=== PATIENT | female | born 1960 | race Caucasian/White ===

== ENCOUNTER 2020-06-09 09:44 | Outpatient (CLI) | payer OTHER, SELFPAY ==
[2020-06-10 19:47] LABS: SARS-CoV-2 RNA PCR Negative
== END 2020-06-09 09:45 | disposition home or self-care (01) ==
LOC: CHSLAB 09:47
PROVIDERS: PCP Internal Medicine; Visit Provider Internal Medicine
DX: Z20.828 Contact with and (suspected) exposure to other viral communicable diseases (principal)
CPT/HCPCS: 87635; C9803; U0003

== ENCOUNTER 2021-07-30 14:36 | Outpatient (CLI) | payer OTHER, SELFPAY ==
[2021-07-30 16:19] LABS: Influenza Control Valid (Valid); SARS-CoV-2 Ag Negative (Negative)
== END 2021-07-30 14:37 | disposition home or self-care (01) ==
LOC: CHSLAB 14:38
PROVIDERS: PCP Internal Medicine; Visit Provider Internal Medicine
DX: J06.9 Acute upper respiratory infection, unspecified (principal); Z20.822 Contact with and (suspected) exposure to COVID-19
CPT/HCPCS: 87426; 87804; C9803

== ENCOUNTER → 2021-09-15 06:53 | Outpatient (CLI) | payer OTHER, SELFPAY ==
--- NOTE | ~2021-09-15 | DEXA_ITS ---
Bone Density Report Name: JJ ESTRELLA Age: 60 Sex: Female Ethnicity: White Date of : 1960 Indication: postmenopausal; screening for osteoporosis; height loss; asthma or emphysema; Referring Provider: ANNA MOTTA Study: Bone densitometry was performed. Exam Date: September 15, 2021 Accession number: [id number] Bone Density: Region BMD T-score Z-score Classification AP Spine (L1-L4) 1.032 -0.1 1.5 Normal Femoral Neck (Left) 0.613 -2.1 -0.7 Osteopenia Total Hip (Left) 0.690 -2.1 -1.0 Osteopenia Femoral Neck (Right) 0.619 -2.1 -0.7 Osteopenia Total Hip (Right) 0.699 -2.0 -0.9 Osteopenia Total Hip Mean 0.695 -2.1 -1.0 Osteopenia World Health Organization criteria for BMD impression classify patients as: Normal (T-score at or above -1.0), Osteopenia (T-score between -1.0 and -2.5), or Osteoporosis (T-score at or below -2.5). 10-year Fracture Risk(1): Major Osteoporotic Fracture 10% Hip Fracture 1.5% Reported Risk Factors: [place] (), Neck BMD=0.619, BMI=24.5 (1) FRAX(R) Version 3.08. Fracture probability calculated for an untreated patient. Fracture probability may be lower if the patient has received treatment. Clinical Information Provided by Patient: Has used the following medications: Vitamin D Has the following medical conditions: Asthma or Emphysema Patient maximum height was 65 Menopause Age: 40 Drinks caffeinated beverages Onset of menses at age 8 Number of children 0 Impression: The patient has low bone mass, based on the Left Total Hip T-score. The patient has an estimated ten-year risk of hip fracture of 1.5% and an estimated ten-year risk of major fracture of 10%, based on the WHO FRAX algorithm. Discussion: BONE DENSITY IS LOW AT ONE OR MORE SKELETAL SITES. This patient's lowest T-score is low at one or more skeletal sites. It meets the World Health Organization's (WHO) criteria for ?low bone mass? (T-score between -1.0 and -2.5). The patient's 10-year risk of fracture as calculated by FRAX is less than the threshold where pharmacological therapy is recommended by the National Osteoporosis Foundation (NOF). However, all treatment decisions require clinical judgment and consideration of individual patient factors, including patient preferences, comorbidities, previous drug use, risk factors not captured in the FRAX model (e.g., frailty, falls, vitamin D deficiency, increased bone turnover, interval significant decline in bone density) and possible under or overestimation of fracture risk by FRAX. The patient should follow a healthful lifestyle (good nutrition with adequate calcium and vitamin D, and appropriate weight-bearing exercise). Follow-Up: Consider repeating this study in 2 to 3 years to reassess this patient's status, or sooner if there is some new clin
== END ==
PROVIDERS: Visit Provider Obstetrics & Gynecology Gynecology
DX: Z78.0 Asymptomatic menopausal state (principal); M85.852 Other specified disorders of bone density and structure, left thigh; M85.851 Other specified disorders of bone density and structure, right thigh
CPT/HCPCS: 77080

== ENCOUNTER 2022-03-13 07:31 | Outpatient (CLI) | payer OTHER, SELFPAY ==
[2022-03-16 16:16] LABS: Vitamin D 25 Hydroxy 42 ng/mL (30-100)
== END 2022-03-13 07:32 | disposition home or self-care (01) ==
LOC: CHSLAB 07:34
PROVIDERS: PCP Internal Medicine; Visit Provider Obstetrics & Gynecology Gynecology
DX: E55.9 Vitamin D deficiency, unspecified (principal)
CPT/HCPCS: 36415; 82306

== ENCOUNTER 2022-07-14 07:35 | Outpatient (CLI) | payer OTHER, SELFPAY ==
[2022-07-14 07:49] LABS: Add Urine Microscopic? YES; Appearance Urine Clear (Clear); Basophils Absolute Auto 0.06 K/mm3 (0.00-0.10); Basophils Percent Auto 0.8 % (0.0-1.0); Bilirubin Urine Negative (Negative); Blood Urine Trace-Intact (Negative); Color Urine Light Yellow (Yellow); Eosinophils Absolute Auto 0.11 K/mm3 (0.02-0.50); Eosinophils Percent Auto 1.5 % (1.0-6.0); Glucose Urine UA Negative (Negative); Hematocrit 40.4 % (35.0-49.0); Hemoglobin 13.4 g/dL (12.0-15.0); Immature Granulocyte Absolute 0.02 K/mm3 (0.00-0.00); Immature Granulocyte Percent A 0.3 % (0.0-0.0); Ketones Urine Negative (Negative); Leukocyte Esterase Ur Trace (Negative); Lymphocytes Absolute Auto 1.51 K/mm3 (1.10-4.50); Mean Corpuscular HGB Conc 33.2 g/dL (32.0-36.0); Mean Corpuscular Hemoglobin 30.8 pg (27.0-31.0); Mean Corpuscular Volume 92.9 fL (78.0-102.0); Mean Platelet Volume 9.9 fl (9.2-11.8); Monocytes Absolute Auto 0.52 K/mm3 (0.10-0.90); Monocytes Percent Auto 7.2 % (2.0-11.0); Neutrophils Percent Auto 69.2 % (50.0-70.0); Nitrate Urine Negative (Negative); Platelet Count Result 261 K/mm3 (150-420); Protein Urine Negative (Negative); Red Blood Count 4.35 M/mm3 (4.20-5.40); Red Cell Distribution Width 12.7 % (11.6-14.4); Specific Grav Ur <= 1.005 (1.010-1.020); Urobilinogen Urine 0.2 mg/dL (0.2-1.0); White Blood Count 7.2 K/mm3 (4.8-10.8)
[2022-07-14 07:55] LABS: Bacteria Urine None seen /hpf; RBC Urine 0-2 /hpf (0-2); Squamous Epithelial Cell Urine Rare /hpf (Few); WBC Urine 0-3 /hpf (0-3)
[2022-07-14 08:11] LABS: Anion Gap 7 mmol/L (8-16); Blood Urea Nitrogen 16 mg/dL (7-18); Carbon Dioxide 30 mmol/L (21-32); Chloride 105 mmol/L (98-108); Potassium 3.5 mmol/L (3.5-5.1); Sodium 142 mmol/L (136-145)
[2022-07-14 08:12] LABS: Alanine Aminotransferase 20 U/L (14-59); Albumin Level 3.9 g/dL (3.4-5.0); Alkaline Phosphatase 81 U/L (46-116); Amylase 33 U/L (25-115); Aspartate Amino Transferase 17 U/L (15-37); Bilirubin,Total 0.5 mg/dL (0.00-1.00); Estimated Glomerular Filt Rate > 60; Glucose 102 mg/dL (70-99); Lipase 31 U/L (16-77); Osmolality Calculated 295 mOsm/kg (285-295); Total Protein 6.9 g/dL (6.4-8.2)
[2022-07-14 08:18] LABS: CRP < 0.5 mg/dL (0.0-0.9)
== END 2022-07-14 07:36 | disposition home or self-care (01) ==
LOC: CHSLAB 07:38
PROVIDERS: PCP Internal Medicine; Visit Provider Internal Medicine
DX: R10.31 Right lower quadrant pain (principal)
CPT/HCPCS: 36415; 80053; 81001; 82150; 83690; 85025; 86140; 87086

== ENCOUNTER 2023-01-17 09:56 | Outpatient (CLI) | payer BC, SELFPAY ==
[2023-01-17 11:07] LABS: Albumin Level 3.5 g/dL (3.4-5.0); Estimated Glomerular Filt Rate > 60
== END 2023-01-17 09:57 | disposition home or self-care (01) ==
LOC: CHSLAB 10:10
PROVIDERS: PCP Internal Medicine; Visit Provider Obstetrics & Gynecology Gynecology
DX: M85.88 Other specified disorders of bone density and structure, other site (principal)
CPT/HCPCS: 36415; 82040; 82310; 82565

== ENCOUNTER 2023-09-26 07:57 | Outpatient (CLI) | payer MEDICARE, OTHER, SELFPAY ==
--- NOTE | ~2023-09-26 | XR_ITS ---
EXAMINATION: XR shoulder LT min 2V DATE: 09/26/2023 08:40 INDICATION: Left shoulder pain. TECHNIQUE: 4 views of left shoulder were obtained. COMPARISON: None. FINDINGS: Bone alignment is normal. No fracture. There is mild osteoarthritis of glenohumeral joint a nd acromioclavicular joint. IMPRESSION: 1. Mild polyarticular osteoarthritis. Reviewed, dictated and finalized at location E. ASE AND INSECT CONTROL BOSS
--- NOTE | ~2023-09-26 | XR_ITS ---
EXAMINATION: XR shoulder RT min 2V DATE: 09/26/2023 08:40 INDICATION: Right shoulder pain. TECHNIQUE: 4 views of right shoulder were obtained. COMPARISON: None. FINDINGS: Bone alignment is normal. No fracture. There is mild osteoarthritis of acromioclavicular leslie int and glenohumeral joint. IMPRESSION: 1. Mild polyarticular osteoarthritis. Reviewed, dictated and finalized at location E. RAW SUGAR CUTTER
== END 2023-09-26 07:58 | disposition home or self-care (01) ==
LOC: CHSIMG 08:03
PROVIDERS: PCP Internal Medicine; Visit Provider Internal Medicine
DX: M25.511 Pain in right shoulder (principal); M25.512 Pain in left shoulder; M19.012 Primary osteoarthritis, left shoulder; M19.011 Primary osteoarthritis, right shoulder
CPT/HCPCS: 73030

== ENCOUNTER 2023-09-30 16:02 | Outpatient (NON) | payer MEDICARE, SELFPAY ==
[2023-09-30 16:13] LABS: Basophils Absolute Auto 0.08 K/mm3 (0.00-0.10); Eosinophils Absolute Auto 0.18 K/mm3 (0.02-0.50); Eosinophils Percent Auto 2.2 % (1.0-6.0); Hematocrit 41.5 % (35.0-42.0); Hemoglobin 13.6 g/dL (11.7-13.8); Immature Granulocyte Absolute 0.02 K/mm3 (0.00-0.00); Immature Granulocyte Percent A 0.2 % (0.0-0.0); Lymphocytes Absolute Auto 2.31 K/mm3 (1.10-4.50); Lymphocytes Percent Auto 27.7 % (18.0-42.0); Mean Corpuscular HGB Conc 32.8 g/dL (32.0-36.0); Mean Corpuscular Hemoglobin 29.8 pg (27.0-31.0); Mean Platelet Volume 10.2 fl (9.2-11.8); Monocytes Absolute Auto 0.59 K/mm3 (0.10-0.90); Monocytes Percent Auto 7.1 % (2.0-11.0); Neutrophils Absolute Auto 5.2 K/mm3 (1.7-7.2); Neutrophils Percent Auto 61.8 % (50.0-70.0); Platelet Count Result 259 K/mm3 (150-420); Red Blood Count 4.56 M/mm3 (4.20-5.40); Red Cell Distribution Width 13.2 % (11.6-14.4); White Blood Count 8.4 K/mm3 (4.8-10.8)
[2023-09-30 16:20] LABS: D Dimer 0.19 mg/L (0.19-0.50)
[2023-09-30 16:37] LABS: Alanine Aminotransferase 13 U/L (14-59); Alkaline Phosphatase 68 U/L (46-116); Anion Gap 9 mmol/L (8-16); Aspartate Amino Transferase 19 U/L (15-37); Bilirubin,Total 0.3 mg/dL (0.00-1.00); Blood Urea Nitrogen 19 mg/dL (7-18); Carbon Dioxide 30 mmol/L (21-32); Chloride 105 mmol/L (98-108); Creatine Kinase 114 U/L (26-192); Estimated Glomerular Filt Rate > 60; Glucose 103 mg/dL (70-99); Osmolality Calculated 300 mOsm/kg (285-295); Sodium 144 mmol/L (136-145); Thyroid Stimulating Hormone 1.35 uIU/mL (0.36-3.74); Total Protein 7.3 g/dL (6.4-8.2); Troponin I 5.8 ng/L (0.00-60.4)
== END 2023-09-30 16:03 | disposition home or self-care (01) ==
LOC: CHSLAB 16:04
PROVIDERS: Visit Provider Internal Medicine
DX: R07.9 Chest pain, unspecified (principal); R53.83 Other fatigue
CPT/HCPCS: 36415; 80053; 82550; 82553; 84443; 84484; 85025; 85380

== ENCOUNTER 2023-10-06 07:23 | Outpatient (CLI) | payer MEDICARE, SELFPAY ==
--- NOTE | ~2023-10-06 | US_ITS ---
Limited Abdominal Sonogram: Real-time sonographic imaging of the right upper quadrant was performed. Clinical History: Dyspepsia Findings: The liver appears mildly echogenic, with no evidence of mass lesion or bile duct dilatatio n. Main portal vein demonstrates normal direction of flow. The gallbladder is well distended, and carina ears normal with no evidence of gallstone or wall thickening. The common bile duct measures 3 mm. Th e visualized pancreas, aorta, and IVC are unremarkable. Impression: Probable diffuse fatty infiltration of liver. Reviewed, dictated and finalized at location M. Impression: Probable diffuse fatty infiltration of liver.
== END 2023-10-06 07:24 | disposition home or self-care (01) ==
LOC: CHSIMG 07:24
PROVIDERS: PCP Internal Medicine; Visit Provider Internal Medicine
DX: R10.13 Epigastric pain (principal); J45.909 Unspecified asthma, uncomplicated
CPT/HCPCS: 76705

== ENCOUNTER 2023-10-06 13:45 | Outpatient (RCR) | payer MEDICARE, OTHER, SELFPAY ==
--- NOTE | 2023-10-06 15:01 | OPREHPOC ---
Outpatient Therapy Plan of Care This is a Multidisciplinary Plan of Care that may contain components documented by all disciplines (PT, OT, and ST.) PT Problem 1 PT Problem #1 Knowledge Deficit PT Goal 1 Goal The patient will be independent in a home exercise program. Target Visit 12 PT Problem 2 PT Problem #2 Pain PT Goal 1 Goal The patient will report no greater than 3/10 left shoulder pain with all activity. Target Visit 12 PT Problem 3 PT Problem #3 Impaired Range of Motion PT Goal 1 Goal The patient will demonstrate 160 degrees of left shoulder flexion AROM to reach into overhead cabinets. The patient will demonstrate functional IR AROM of the left shoulder to T8 to improve dressing and bathing ability. The patient will demonstrate 70 degrees of left shoulder ER AROM to reach a seatbelt. 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 Target Visit 12 PT Problem 5 PT Problem #5 Impaired Functional Mobil PT Goal 1 Goal The patient will have less than 10% self perceived disability per the Quick DASH questionnaire. Target Visit 12
--- NOTE | 2023-10-06 15:01 | PTOPEVAL1 ---
Assessment and note entered by Radha Pineda, PT Evaluation Information Assessment Status Evaluation Diagnosis L shoulder adhesive capsulitis Subjective Information Sheyla Schilling reports she started having left shoulder pain about 6 months ago and the pain has gradually worsened. She has difficulty reaching overhead and behind her back so she went to the doctor. She had a x-ray and was diagnosed with arthritis and a frozen shoulder. She was referred to physical therapy. She notes a lot of popping when she reaches and she can not lay on her left side. Reported Pain Level Pain Score 0: Self Report Assessment PT Clinical Summary Sheyla Schilling presents with left shoulder pain with a gradual onset. She has been diagnosed with adhesive capsulitis and x-rays showed osteoarthritis. 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 She objectively demonstrates tenderness on the left teres minor muscle, decreased left shoulder AROM, decreased left shoulder PROM, decreased left shoulder strength, and decreased functional abilities. She will benefit from skilled PT to address these limitations. Plan of Care Interventions Electrical Stimulation,Hot Pack/Cold Pack,Manual Therapy,Neuro Re-education,Patient/Caregiver Educati,Therapeutic Activities,Therapeutic Exercise PT Services Indicated Yes Treatment Frequency and 3 times a week for 12 visits Duration These treatments will address the objective and functional deficits as defined above. The patient will be advanced safely and appropriately in order for the patient to progress towards his/her prior level of function. Additional exercises will be introduced and as well as a comprehensive home exercise program upon discharge, if needed, ?to ensure carryover of functional gains achieved in the clinic. This treatment plan has been reviewed and agreement upon by the patient.
--- NOTE | 2023-10-17 07:16 | PCPTNOTE ---
patient has a schedule conflict
--- NOTE | 2023-11-02 08:07 | OPREHPOC ---
Outpatient Therapy Plan of Care This is a Multidisciplinary Plan of Care that may contain components documented by all disciplines (PT, OT, and ST.) PT Problem 1 PT Problem #1 Knowledge Deficit PT Goal 1 Goal The patient will be independent in a home exercise program. Target Visit 12 Progress Met PT Problem 2 PT Problem #2 Pain PT Goal 1 Goal The patient will report no greater than 3/10 left shoulder pain with all activity. Target Visit 12 Progress Partially Met PT Problem 3 PT Problem #3 Impaired Range of Motion PT Goal 1 Goal The patient will demonstrate 160 degrees of left shoulder flexion AROM to reach into overhead cabinets. The patient will demonstrate functional IR AROM of the left shoulder to T8 to improve dressing and bathing ability. met The patient will demonstrate 70 degrees of left shoulder ER AROM to reach a seatbelt. 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 Target Visit 12 Progress Partially Met PT Problem 5 PT Problem #5 Impaired Functional Mobil PT Goal 1 Goal The patient will have less than 10% self perceived disability per the Quick DASH questionnaire. Target Visit 12 Progress Not Met
--- NOTE | 2023-11-02 08:07 | PTOPDC ---
Assessment and note entered by JT File, PT Evaluation Information Assessment Status Discharge Diagnosis L shoulder adhesive capsulitis Subjective Information patient reports she feels pretty good today. she reports she only has pain in the L shoulder if she moves the arm the wrong way. she reports she is now able to reach behind her back, but reports she is unable to supinate her forearm with reaching behind her back causing difficulty to wash and get dressed. she reports she is able to sleep through the night now. she reports every once in a while she does have a twinge of pain, but reports it is very brief. she reports she would like to try exercises on her own. Reported Pain Level Pain Score 0: Self Report Assessment PT Clinical Summary mrs. sanchez presents to skilled PT services for her 10th skilled therapy visit. she displays improved L shoulder passive and active rom, improved strength, and improve functional lifting/ reaching. she displays improved functional score on the quick dash. she will be DC'd from skilled PT services today per her wishes, and will continue independent HEP at home. Plan of Care PT Services Indicated Yes
== END 2023-11-02 08:18 | disposition home or self-care (01) ==
LOC: CHSPT 13:45
PROVIDERS: Visit Provider Internal Medicine
DX: M25.512 Pain in left shoulder (principal)
CPT/HCPCS: 76705; 97014; 97110; 97140; 97161; G0283

== ENCOUNTER 2023-10-17 08:40 | Outpatient (CLI) | payer MEDICARE, OTHER, SELFPAY ==
--- NOTE | 2023-10-17 08:47 | EST_ITS ---
Patient Info Name: Sheyla Schilling Age: 63 years : 1960 Gender: Female Ht: 65 in Wt: 131 lbs BSA: 1.65 m2 HR: 68 bpm BP: 130 / 73 mmHg Heart Rhythm: Sinus Rhythm Technical Quality: Good Exam Date: 10/17/2023 10:16 AM Exam Location: [facility] Patient Status: Outpatient Admit Date: 10/17/2023 Staff Ordering Physician: Rommel Modi MD Attending Provider: Rommel Modi MD Exam Type: CA stress test treadmill w NM Study Info A treadmill exercise stress test was performed. Summary 1. 1. Negative Marcello exercise stress test for ischemic ST changes by ECG criteria. 2. 2. Good functional capacity, achieving 8.9 METs of workload. 3. 3. Appropriate HR response to exercise. 4. 4. Appropriate HR recovery at 1 minute post exercise. 5. 5. Nuclear scan to follow and will be reported separately. Please correlate with it. Protocol: Marcello Stress ECG Details Stage: REST Duration (min): 1 min : 40 sec Speed (mph): 0.0 Grade (%): 0 HR (bpm): 69 SBP (mmHg): 130 DBP (mmHg): 73 METS: --- Stage: REST Duration (min): 5 min : 7 sec Speed (mph): 0.0 Grade (%): 0 HR (bpm): 84 SBP (mmHg): 130 DBP (mmHg): 73 METS: --- Stage: STAGE 1 Duration (min): 1 min : 0 sec Speed (mph): 1.7 Grade (%): 10 HR (bpm): 104 SBP (mmHg): 130 DBP (mmHg): 73 METS: --- Stage: STAGE 1 Duration (min): 2 min : 0 sec Speed (mph): 1.7 Grade (%): 10 HR (bpm): 115 SBP (mmHg): 130 DBP (mmHg): 73 METS: --- Stage: STAGE 1 Duration (min): 3 min : 0 sec Speed (mph): 1.7 Grade (%): 10 HR (bpm): 114 SBP (mmHg): 131 DBP (mmHg): 62 METS: --- Stage: STAGE 2 Duration (min): 1 min : 0 sec Speed (mph): 2.5 Grade (%): 12 HR (bpm): 131 SBP (mmHg): 131 DBP (mmHg): 62 METS: --- Stage: STAGE 2 Duration (min): 2 min : 0 sec Speed (mph): 2.5 Grade (%): 12 HR (bpm): 144 SBP (mmHg): 131 DBP (mmHg): 62 METS: --- Stage: STAGE 2 Duration (min): 3 min : 0 sec Speed (mph): 2.5 Grade (%): 12 HR (bpm): 150 SBP (mmHg): 139 DBP (mmHg): 67 METS: --- Stage: STAGE 3 Duration (min): 1 min : 0 sec Speed (mph): 3.4 Grade (%): 14 HR (bpm): 157 SBP (mmHg): 139 DBP (mmHg): 67 METS: --- Stage: STAGE 3 Duration (min): 1 min : 0 sec Speed (mph): 3.4 Grade (%): 14 HR (bpm): 157 SBP (mmHg): 139 DBP (mmHg): 67 METS: --- Stage: RECOVERY Duration (min): 0 min : 59 sec Speed (mph): 0.0 Grade (%): 0 HR (bpm): 139 SBP (mmHg): 139 DBP (mmHg): 67 METS: --- Stage: RECOVERY Duration (min): 1 min : 59 sec Speed (mph): 0.0 Grade (%): 0 HR (bpm): 118 SBP (mmHg): 159 DBP (mmHg): 71 METS: --- Stage: RECOVERY Duration (min): 2 min : 59 sec Speed (mph): 0.0 Grade (%): 0 HR (bpm): 87 SBP (mmHg): 159 DBP (mmHg): 71 METS: --- Stage: RECOVERY Duration (min): 3 min :
--- NOTE | 2023-10-17 14:43 | WPDCARIOSTRE ---
Nuclear Stress Test INDICATIONS Indications: Chest pain PROCEDURE Procedure Performed: Myocardial Perf Spect-Multi Procedure: Patient exercised on a Marcello protocol and at peak exercise was injected with 30.3 mCi of cardiolyte. Multiple tomographic images were obtained. These are of good quality. There is evidence of small size, mild mid anterior perfusion defect with stress imaging. A separrate resting images were obtained after patient was injected with 10.0 mCi of cardiolyte. Multiple tomographic images were obtained. These are of good quality. There is no perfusion defect with rest imaging. CONCLUSION Conclusion: 1. Abnormal myocardial perfusion imaging demonstrating a small size anterior perfusion defect with stress imaging consistent with reversible ischemia. 2. Left ventriculogram demonstrates normal measured ejection fraction of 67% with no wall motion abnormalities. 3. TID score 0.94 is normal.
== END 2023-10-17 08:41 | disposition home or self-care (01) ==
LOC: CHSIMG 08:42
PROVIDERS: PCP Internal Medicine; Visit Provider Internal Medicine
DX: R07.89 Other chest pain (principal); R94.31 Abnormal electrocardiogram [ECG] [EKG]; R94.39 Abnormal result of other cardiovascular function study
CPT/HCPCS: 78452; 93017; A9502

== ENCOUNTER 2023-10-18 09:55 | Outpatient (CLI) | payer MEDICARE, OTHER, SELFPAY | END 2023-10-18 09:56 | disposition home or self-care (01) | LOC: CHSCARD 09:57 | PROVIDERS: PCP Internal Medicine; Visit Provider Internal Medicine | DX: J45.909 Unspecified asthma, uncomplicated (principal) | CPT/HCPCS: 94060; 94726; 94729 ==

== ENCOUNTER 2023-11-27 08:37 | Emergency (ER) | payer MEDICARE, OTHER, SELFPAY ==
--- NOTE | ~2023-11-27 | XR_ITS ---
EXAMINATION: XR ribs RT 2V w CXR 2V DATE: 11/27/2023 09:19 INDICATION: Right chest injury. Pain on inspiration. TECHNIQUE: Frontal and lateral views of the chest on 3 radiographs and 2 views on 3 radiographs of th e right ribs were obtained. COMPARISON: None. FINDINGS: CHEST TWO VIEWS: There is no pneumonia, pleural effusion, or pneumothorax. The heart size is normal. RIGHT RIBS: There is no rib fracture. IMPRESSION: 1. No rib fracture. Reviewed, dictated and finalized at location A. IMPRESSION: 1. No rib fracture.
[2023-11-27 08:37] VITALS: BP 138/81; PULSE 68; RESP 18; TEMP 36.4; O2SAT 100
[2023-11-27 08:45] VITALS: O2SAT 99
--- NOTE | 2023-11-27 08:45 | ED.FALL ---
HPI - Fall General Chief Complaint: Fall Stated Complaint: right side rib cage pain Time Seen by Provider: 11/27/23 08:44 Source: patient Mode of arrival: ambulatory Limitations: no limitations History of Present Illness HPI Narrative: Patient is a 63-year-old female with a right mid abdomen to the side fall prior to arrival. She was getting out of the bathtub and slipped and fell on her right side. No head or neck injuries. MD complaint: fall Onset (ago): hour(s) (1) Fall from: standing Fall witnessed: no Place fall occurred: home Loss of consciousness: none Prolonged down time: no Symptoms prior to fall: none Context: tripped/slipped Location of injury: chest ( Right side) Severity: moderate Severity scale (1-10): 6 Quality: sharp Associated symptoms (after fall): denies Related Data Home Medications Medication Instructions Recorded Confirmed calcium polycarbophil 625 mg 1,250 mg PO DAILY 01/28/23 01/28/23 tablet (FiberCon) cholecalciferol (vitamin D3) 50 100 mcg PO DAILY 01/28/23 01/28/23 mcg (2,000 unit) tablet (Vitamin D3) magnesium 250 mg tablet 500 mg PO DAILY 01/28/23 01/28/23 montelukast 10 mg tablet 10 mg PO HS 01/28/23 01/28/23 (Singulair) Allergies Allergy/AdvReac Type Severity Reaction Status Date / Time cephalexin [From Keflex] AdvReac Unknown Verified 01/28/23 11:34 Review of Systems Review of Systems: All systems reviewed & are unremarkable except as noted in HPI and below Constitutional: Constitutional: Reports no additional constitutional complaints Eyes: Eyes: Reports no additional eye complaints ENT: Reports system reviewed and no additional complaints, except as documented Cardiovascular: Cardiovascular: Reports no additional cardiovascular complaints Respiratory: Respiratory: Reports no additional respiratory complaints Gastrointestinal: Gastrointestinal: Reports no additional gastrointestinal complaints Genitourinary: Genitourinary: Reports no additional female genitourinary complaints Musculoskeletal: Musculoskeletal: Reports no additional musculoskeletal complaints Integumentary/Breasts: Skin/Breast: Reports system reviewed and no additional complaints, except as docu Neurologic: Reports system reviewed and no additional complaints, except as documented Psychiatric: Psychiatric: Reports no additional psychiatric complaints Endocrine: Endocrine: Reports no additional endocrine complaints Hematologic/Lymphatic: Hematologic/Lymphatic: Reports no additional hematologic/lymphatic complaints Allergic/Immunologic: Allergic/Immunologic: Reports no additional allergic/immunologic complaints Exam Const: General: healthy appearing Nutritional Appearance: well nourished Orientation/consciousness: patient oriented x3 HENMT: Head: normal to inspection Ears: external ears normal Face/Nose/Sinus: Normal external nose present Eyes: Conjunctivae: conjunctivae normal Pupils: Equal, round and reactive pupils present EOM: EOMs intact bilaterally Neck: Neck: normal visual inspection Chest: Chest palpation & inspection: normal inspection of the chest Other: right chest mid axillary line lower ribs are tender to palpation without deformity or crepitations Resp: Effort & Inspection: normal respiratory effort and not labored Auscultation: clear to auscultation bilaterally Cardio: Rate: regular rate Rhythm: regular rhythm Heart sounds: no murmurs GI: Inspection: non-distended GI Palp: Yes Soft to palpation and No Tenderness to palpation present (GI) Auscultation: normal bowel sounds : General: Yes bladder normal to palpation Back/Spine/Pelvis: Back: no CVA tenderness Skin: General skin exam: normal color Rashes: no rashes Wounds: no wounds Neuro: General: patient oriented x3 Cranial nerves: Yes Nystagmus not present Speech: normal speech Extrem: General: normal to inspection Psych: Mental Status: mental status grossly normal Affect: gus
[2023-11-27 09:45] VITALS: BP 111/80; PULSE 68; RESP 16; O2SAT 98
== END 2023-11-27 10:00 | disposition home or self-care (01) ==
PROVIDERS: Emergency Provider Emergency Medicine; PCP Internal Medicine
DX: S20.211A Contusion of right front wall of thorax, initial encounter (principal); W18.2XXA Fall in (into) shower or empty bathtub, initial encounter
CPT/HCPCS: 71046; 71100; 99283

== ENCOUNTER 2023-12-12 14:11 | Outpatient (CLI) | payer MEDICARE, OTHER, SELFPAY ==
--- NOTE | ~2023-12-12 | DEXA_ITS ---
? Bone Density Report? Name:? ESTRELLA, JJ L Patient ID:??? [id number] Age:? 63 Sex:? Female Ethnicity:? White Date of : 1960 Indication: postmenopausal; screening for osteoporosis; height loss; asthma or emphysema; Referring Provider: Leona Wong Study: Bone densitometry was performed. Exam Date: December 12, 2023 Accession number: [id number] Bone Density: Region? BMD??? T-score? Z-score?? Classification AP Spine(L1, L2, L3)? 0.923?? -0.9?0.9? Normal Femoral Neck (Left)? 0.636?? -1.9? -0.4? Osteopenia Total Hip (Left)? 0.718?? -1.8?-0.6? Osteopenia Femoral Neck (Right)? 0.629?? -2.0? -0.5? Osteopenia Total Hip (Right)? 0.708?? -1.9? -0.7? Osteopenia Femoral Neck Mean? 0.632?? -2.0? -0.4? Osteopenia Total Hip Mean? 0.713?? -1.9?-0.6? Osteopenia World Health Organization criteria for BMD impression classify patients as: Normal (T-score at or above -1.0), Osteopenia (T-score between -1.0 and -2.5), or Osteoporosis (T-score at or below -2.5). 10-year Fracture Risk: FRAX not reported because: ? Treated for osteoporosis Clinical Information Provided by Patient: Is being treated for osteoporosis Has used the following medications: Evista (i.e. raloxifene), Vitamin D Has the following medical conditions: Asthma or Emphysema Patient maximum height was 65 Menopause Age: 38 No regular weight bearing exercise Drinks caffeinated beverages Onset of menses at age 8 Number of children 0 Impression: The patient has low bone mass, based on the Right Femoral Neck T- score. Discussion: It is important to ask patients whether they are taking their medications and to encourage continued and appropriate compliance with their osteoporosis therapies to reduce fracture risk. It is also important to review their risk factors and encourage appropriate calcium and vitamin D intakes, exercise, fall prevention and other lifestyle measures. Follow-Up: Consider a repeat BMD and Vertebral Fracture Assessment (VFA) exam in 2 years or sooner if medically necessary, to reassess this patient's status. Reported by: Dr. Alfred Shaikh on 12/12/2023 2:48:00 PM. TAMMY
== END 2023-12-12 14:12 | disposition home or self-care (01) ==
LOC: CHSIMG 14:12
PROVIDERS: PCP Internal Medicine; Visit Provider Obstetrics & Gynecology Gynecology
DX: Z78.0 Asymptomatic menopausal state (principal); M85.89 Other specified disorders of bone density and structure, multiple sites
CPT/HCPCS: 77080

== ENCOUNTER 2023-12-21 01:42 | Day surgery (SDC) | payer MEDICARE, OTHER, SELFPAY ==
[2023-12-20 13:29] VITALS: BMI 23.6
[2023-12-21] VITALS (18 sets, daily range): BP systolic 85–116; BP diastolic 56–79; PULSE 64–79; RESP 14–18; TEMP 36.9–37; O2SAT 97–100
[2023-12-21 07:30] LABS: Basophils Absolute Auto 0.1 K/mm3 (0.0-0.1); Basophils Percent Auto 1.3 % (0.2-1.2); Eosinophils Absolute Auto 0.2 K/mm3 (0-0.3); Eosinophils Percent Auto 3.2 % (0-4.4); Hematocrit 46.2 % (37.0-47.0); Hemoglobin 15.3 g/dL (12.0-15.0); Immature Granulocyte Absolute 0.01 K/mm3 (0.00-0.031); Immature Granulocyte Percent A 0.2 % (0-0.5); Lymphocytes Absolute Auto 2.04 K/mm3 (0.9-3.2); Lymphocytes Percent Auto 32.7 % (18.3-44.2); Mean Corpuscular HGB Conc 33.1 g/dl (32-36); Mean Corpuscular Hemoglobin 30.5 pg (26-34); Mean Corpuscular Volume 92.2 fl (80-100); Monocytes Absolute Auto 0.5 K/mm3 (0.1-0.6); Monocytes Percent Auto 8.3 % (2.6-8.5); Neutrophils Absolute Auto 3.4 K/mm3 (1.3-6.7); Neutrophils Percent Auto 54.3 % (45.5-73.1); Platelet Count Result 241 k/mm3 (150-375); Red Blood Count 5.01 M/mm3 (4.2-5.4); White Blood Count 6.2 K/mm3 (4.5-10.0)
[2023-12-21 07:40] LABS: Prothrombin Time 13.5 Seconds (11.1-14.7)
[2023-12-21 07:41] LABS: Anion Gap 8 mmol/L (4-12); Blood Urea Nitrogen 16 mg/dL (7-17); Calcium 9.6 mg/dL (8.4-10.2); Carbon Dioxide 26 mmol/L (22-30); Chloride 106 mmol/L (98-107); Estimated CRCL calculation 57 ml/min; Estimated Glomerular Filt Rate > 60; Glucose 97 mg/dL (65-110); Potassium 3.5 mmol/L (3.4-5.0); Sodium 140 mmol/L (137-145)
[2023-12-21] MEDS: SODIUM CHLORIDE 0.9% IV 500 ML 100 ML IV CONT (08:20)
--- NOTE | 2023-12-21 09:25 | WPDHPUPDATE1 ---
History and Physical Update Update Date/Time: 12/21/23 09:25 History and Physical has been reviewed, including an updated exam of the patient. There are NO changes in the patient's condition. Risks, benefits, and alternatives have been discussed and questions answered. Patient agrees to proceed with procedure.
--- NOTE | 2023-12-21 09:25 | WPDMODSED ---
Moderate Sedation Note-Pt Data Patient Data Diagnosis: Coronary artery disease, abnormal stress test Present Complaint: Abnormal stress test Procedure to be performed/Plan: Coronary angiography, left heart cath, +/- PCI Allergies Allergy/AdvReac Type Severity Reaction Status Date / Time codeine Allergy Hives Verified 12/21/23 07:18 metronidazole [From Flagyl] Allergy Hives Verified 12/21/23 07:18 cephalexin [From Keflex] AdvReac Unknown Rash Verified 12/21/23 07:18 Home Medications Medication Instructions Recorded Confirmed Type calcium polycarbophil 625 mg 1,250 mg PO DAILY 01/28/23 12/20/23 History tablet (FiberCon) cholecalciferol (vitamin D3) 50 100 mcg PO DAILY 01/28/23 12/21/23 History mcg (2,000 unit) tablet (Vitamin D3) magnesium 250 mg tablet 500 mg PO DAILY 01/28/23 12/20/23 History montelukast 10 mg tablet 10 mg PO HS 01/28/23 12/20/23 History (Singulair) ascorbic acid (vitamin C) 500 mg 500 mg PO DAILY 12/20/23 12/21/23 History tablet (Vitamin C) aspirin 81 mg tablet,delayed 81 mg PO DAILY 12/20/23 12/21/23 History release (Adult Low Dose Aspirin) cyanocobalamin (vitamin B-12) 100 100 mcg PO DAILY 12/20/23 12/20/23 History mcg tablet (Vitamin B-12) pantoprazole 20 mg tablet,delayed 20 mg PO DAILY 12/20/23 12/21/23 History release (Protonix) Current Medications: Active Medications Sodium Chloride (Normal Saline Iv) 500 mls @ 100 mls/hr IV CONT .Q5H ERICK Sedation/Anesthesia: No previous sedation/anesthesia problems (including family history). [facility], [facility] Social History Social History Alcohol intake: never Substance use: never Substance use type: does not use Living arrangements: with family Spiritual care concerns: No Mod Sed Physical Exam Physical Exam Pre Procedural Exam: Normal: Appearance, Lungs, Heart Rate, Heart Rhythm, Neuro Exam, Abdomen, Extremities and Skin Hours since solid foods: 12 Hours since liquid intake: 8 Mallampati Classification: class II Internal Medicine - PN: Obj Da Vital Signs Vital Signs: Vital Signs - 24 hr 12/21/23 07:26 Temperature 37.0 C Pulse Rate 69 Respiratory Rate 16 Blood Pressure 116/73 Pulse Oximetry 100 Oxygen Delivery Room Air Meds/Results Medications: Active Medications Generic Name Dose Route Start Last Admin Trade Name Cm PRN Reason Stop Dose Admin Sodium Chloride 500 mls @ 100 mls/hr 12/21/23 07:00 Normal Saline Iv IV CONT .Q5H ERICK Labs 12/21/23 07:16 12/21/23 07:17 Labs: Laboratory Results - last 24 hr 12/21/23 12/21/23 07:16 07:17 WBC 6.2 RBC 5.01 Hgb 15.3 H Hct 46.2 MCV 92.2 MCH 30.5 MCHC 33.1 RDW 13.0 Plt Count 241 MPV 10.0 Immature Gran % (Auto) 0.2 Neut % (Auto) 54.3 Lymph % (Auto) 32.7 Glynn % (Auto) 8.3 Eos % (Auto) 3.2 Baso % (Auto) 1.3 H Lymph # (Auto) 2.04 Glynn # (Auto) 0.5 Eos # (Auto) 0.2 Baso # (Auto) 0.1 Abs Immat Gran (auto) 0.01 Absolute Neuts (auto) 3.4 Absolute Nucleated RBC 0.000 Nucleated RBC % 0.0 PT 13.5 INR 1.0 Sodium 140 Potassium 3.5 Chloride 106 Carbon Dioxide 26 Anion Gap 8 BUN 16 Creatinine 0.70 Estim Creat Clear Calc 57 Estimated GFR > 60 Glucose 97 Calcium 9.6 ASA Classification/Sedation ASA Classification/Sedation ASA Class: II Emergent: No Risks: Risks, benefits and alternatives explained and patient/family accepted plan for sedation. Patient re-evaluated immediately prior to sedation.
--- NOTE | 2023-12-21 09:27 | P.PCNCC_ITS ---
Cardiac Cath Procedure Note Date of procedure:: 12/21/23 Performing physician:: CATHETERIZATION LABORATORY REPORT Procedure Date: 12/21/2023 Transportation Economics Teacher: German Ramos M.D., [facility]? Referring Physician: Jesus Verduzco M.D. Anesthesia: Versed and Fentanyl were ordered and given in my presence at 09:06, procedure ended at 09:21. Supervision of nurse monitored moderate sedation with Versed and Fentanyl was provided for 15 minutes. Total of Versed 1mg and Fentanyl 25mcg were administered by the Putty Mixer And Applier RN Allison Rollins. Pre-op Diagnosis: Coronary artery disease Post-op Diagnosis: No obstructive coronary arteries Procedure(s): 1. Moderate sedation 2. Ultrasound-guided access of the right radial artery 3. Coronary angiography Access Site: Right radial artery Brief History and Clinical Indications: Patient is a 63 year old female who is referred for [facility] for abnormal stress test. All risks, benefits and alternatives to left heart catheterization with or without percutaneous coronary intervention was discussed at length with the patient. Risk of complications including but not limited to bleeding, infection, arrhythmia, stroke, worsening kidney function, blood loss, groin hematoma, limb loss, emergency coronary artery bypass grafting, and even were discussed with the patient and all questions were answered. The patient understood and wished to proceed. Time out called, patient name, date of , medical record number, allergies, procedure performed, identify Transportation Economics Teacher, patient and staff member concurred with accurate data, procedure carried on. Findings: LEFT HEART CATHETERIZATION FINDINGS: 1. Left main: The left main coronary artery is widely patent without any significant obstructive disease. 2. Left anterior descending: The LAD and the diagonal branches have mild luminal irregularities without any significant obstructive angiographic disease. 3. Ramus: The Ramus branch has luminal irregularities. 4. Left circumflex: The left circumflex artery and the main marginal branches have mild luminal irregularities without any significant obstructive angiographic disease. The obtuse marginal branches are tortuous. 5. Right coronary artery: The RCA has mild luminal irregularities without any significant obstructive angiographic disease. The RCA is the dominant vessel. Description of Procedure: Informed consent signed and placed in the chart. Patient transferred to pharmaceutical laboratory technician room. Prepped and draped in usual sterile fashion. 2% lidocaine injected subcutaneously in right wrist area. 22-gauge venipuncture catheter used to access the right radial artery under ultrasound guidance. 6-FR slender sheath placed in right radial artery. Nitroglycerine and Verapamil were given intraarterial through the sheath. Versacore wire advanced under fluoroscopy 5F Tig 4 diagnostic catheter engaged Left Main Coronary Artery. 5F Tig 4 diagnostic catheter engaged Right Coronary Artery Multiple orthogonal angiogram obtained and reviewed Hemostasis was achieved by application of TR band. Post Operative Condition: Stable No significant blood loss Disposition: Home Plan: The patient will be monitored in the recovery area. Discharge home after post-cath bed rest is completed. The above findings were discussed with the referring physician. Continue aggressive medical therapy and risk factor modification. ? German Ramos M.D. Interventional Cardiology
[2023-12-21] MEDS: SODIUM CHLORIDE 0.9% IV 1,000 ML 125 ML IV CONT (12:20)
== END 2023-12-21 14:30 | disposition home or self-care (01) ==
PROVIDERS: PCP Internal Medicine; Visit Provider Internal Medicine
PROC: (CPT 93454; principal; 2023-12-21 08:30)
DX: I25.10 Atherosclerotic heart disease of native coronary artery without angina pectoris (principal); R94.39 Abnormal result of other cardiovascular function study; Z79.82 Long term (current) use of aspirin
CPT/HCPCS: 36415; 80048; 85025; 85610; 93454; C1769; C1887; C1894; J1644; J2250; J2305; J3010; J7030; J7040

== ENCOUNTER 2023-12-31 23:43 | Emergency (ER) | payer MEDICARE, OTHER, SELFPAY ==
[2023-12-31 23:43] VITALS: BP 111/76; PULSE 115; RESP 19; TEMP 36.6; O2SAT 99
--- NOTE | 2023-12-31 23:44 | ECG_ITS ---
Test Date: 2023-12-31 23:49:17 Measurements Intervals [place] Rate: 125 P: 0 IA: 0 QRS: 6 QRSD: 80 T: 64 QT: 284 QTc: 410 Interpretive Statements ATRIAL FIBRILLATION WITH RAPID VENTRICULAR RESPONSE ABNORMAL RHYTHM ECG No previous ECG available for comparison Electronically Signed On 01-03-2024 10:38:52 CDT by German Ramos M.D.
[2023-12-31 23:45] VITALS: PULSE 136; RESP 16; O2SAT 99
[2023-12-31 23:46] VITALS: BP 109/83; PULSE 126; RESP 13; O2SAT 99
--- NOTE | 2023-12-31 23:57 | ED.GENADULT ---
HPI - General Adult General Chief complaint: Arrhythmia/Palpitations Stated complaint: irregular heartbeat Time Seen by Provider: 12/31/23 23:44 History of Present Illness HPI narrative: Sheyla is a 63F with a PMH of osteoporosis, allergies, GERD and a family history of Afib that presented to the ED with a racing heart that would not go away for 2.5 hours. As it was not improving she came to the ED. No CP, dyspnea, or lightheadedness reported. Related Data Home Medications Medication Instructions Recorded Confirmed calcium polycarbophil 625 mg 1,250 mg PO DAILY 01/28/23 01/01/24 tablet (FiberCon) cholecalciferol (vitamin D3) 50 100 mcg PO DAILY 01/28/23 01/01/24 mcg (2,000 unit) tablet (Vitamin D3) magnesium 250 mg tablet 500 mg PO HS 01/28/23 01/01/24 montelukast 10 mg tablet 10 mg PO HS 01/28/23 01/01/24 (Singulair) ascorbic acid (vitamin C) 500 mg 500 mg PO DAILY 12/20/23 01/01/24 tablet (Vitamin C) cyanocobalamin (vitamin B-12) 100 100 mcg PO DAILY 12/20/23 01/01/24 mcg tablet (Vitamin B-12) pantoprazole 20 mg tablet,delayed 20 mg PO DAILY 12/20/23 01/01/24 release (Protonix) Allergies Allergy/AdvReac Type Severity Reaction Status Date / Time cephalexin [From Keflex] AdvReac Mild Nausea and Verified 01/01/24 00:06 Vomiting codeine AdvReac Nausea and Verified 01/01/24 00:06 Vomiting metronidazole [From Flagyl] AdvReac Nausea and Verified 01/01/24 00:06 Vomiting Review of Systems Review of Systems: All systems reviewed & are unremarkable except as noted in HPI and below PMFSH Family History Family History Mother Afib IBS (irritable bowel syndrome) Hairy cell leukemia H/O angioplasty FHx: cholecystectomy H/O: hysterectomy Father Heart attack Social History Social History Smoking status: Never smoker Second hand tobacco smoke exposure: No Alcohol intake: never Substance use: never Substance use type: does not use Do You Feel Safe in your Home?: Yes Lack of Transportation: No Lack of Food: Never True Current Housing: I Have Housing Concerned About Future Housing: No Difficulty Paying Gas/Electric Bills: No Difficulty Paying for Meds: No Currently Unemployed: No Education: Master's Degree or Higher Difficulty w/ Childcare or Family Care: No Living arrangements: with family Spiritual care concerns: No Exam Const: General: cooperative, healthy appearing, comfortable, no acute distress, well developed, alert, awake and Physically active Orientation/consciousness: oriented to person, oriented to place and oriented to time HENMT: Head: normal to inspection, normocephalic and atraumatic Ears: hearing grossly normal bilaterally and external ears normal Face/Nose/Sinus: Normal external nose present Eyes: General: appearance normal, both eyes and all related structures Periorbital: periorbital findings normal Sclera: sclerae normal Pupils: Equal, round and reactive pupils present Neck: Neck: normal visual inspection Chest: Chest palpation & inspection: normal inspection of the chest Resp: Effort & Inspection: normal respiratory effort, able to speak in complete sentences and no respiratory distress Auscultation: clear to auscultation bilaterally Cardio: Jugular venous distension: no JVD Rate: tachycardic Rhythm: abnormal rhythm irregularly irregular Skin: General skin exam: normal color and no rashes or lesions noted Neuro: General: oriented to person, oriented to place and oriented to time Cranial nerves: Yes Equal, round and reactive pupils present Extrem: General: normal to inspection Course Course Emergency Course: Ordered EKG and labs. EKG showed afib with a rate of 125, normal axis and no ST elevation/depression Labs showed mildly elevated TSH, mild hypokalemia but were otherwise normal. Oral potassium was o
[2024-01-01] VITALS (54 sets, daily range): BP systolic 89–119; BP diastolic 60–101; PULSE 80–144; RESP 12–25; O2SAT 97–100
[2024-01-01] MEDS: dilTIAZem 100 MG/100 ML 100 MG/100 ML BAG IV CONT (00:22)
[2024-01-01 00:23] LABS: Basophils Absolute Auto 0.08 K/mm3 (0.00-0.10); Basophils Percent Auto 0.9 % (0.0-1.0); Eosinophils Absolute Auto 0.26 K/mm3 (0.02-0.50); Eosinophils Percent Auto 2.8 % (1.0-6.0); Hematocrit 44.1 % (35.0-42.0); Hemoglobin 14.2 g/dL (11.7-13.8); Immature Granulocyte Absolute 0.02 K/mm3 (0.00-0.00); Immature Granulocyte Percent A 0.2 % (0.0-0.0); Lymphocytes Absolute Auto 3.45 K/mm3 (1.10-4.50); Lymphocytes Percent Auto 37.5 % (18.0-42.0); Mean Corpuscular HGB Conc 32.2 g/dL (32-36); Mean Corpuscular Hemoglobin 29.3 pg (27.0-31.0); Mean Corpuscular Volume 91.1 fL (78.0-102.0); Mean Platelet Volume 10.3 fl (9.2-11.8); Monocytes Percent Auto 8.7 % (2.0-11.0); Neutrophils Percent Auto 49.9 % (50.0-70.0); Platelet Count Result 245 K/mm3 (150-420); Red Blood Count 4.84 M/mm3 (4.20-5.40); Red Cell Distribution Width 12.8 % (11.6-14.4); White Blood Count 9.2 K/mm3 (4.8-10.8)
[2024-01-01 00:49] LABS: Alanine Aminotransferase 23 U/L (14-59); Albumin Level 3.6 g/dL (3.4-5.0); Alkaline Phosphatase 65 U/L (46-116); Anion Gap 9 mmol/L (4-12); Aspartate Amino Transferase 19 U/L (15-37); Bilirubin,Total 0.2 mg/dL (0.00-1.00); Blood Urea Nitrogen 19 mg/dL (7-18); Calcium 9.2 mg/dL (8.5-10.1); Carbon Dioxide 30 mmol/L (21-32); Chloride 103 mmol/L (98-108); Estimated CRCL calculation 48 ml/min; Estimated Glomerular Filt Rate > 60; Glucose 106 mg/dL (70-99); NT Pro B Type Natriuretic Pept 251 pg/mL (0-125); Osmolality Calculated 296 mOsm/kg (285-295); Potassium 3.3 mmol/L (3.5-5.1); Sodium 142 mmol/L (136-145); Thyroid Stimulating Hormone 5.76 uIU/mL (0.36-3.74); Troponin I 14.9 ng/L (0.00-60.4)
[2024-01-01] MEDS: POTASSIUM CHLORIDE 20 MEQ PACKET (FOR LIQUID) PO (01:20)
--- NOTE | 2024-01-01 02:30 | PC.NURSE ---
cardizem gtt titrated down for decrease in BP. ERP aware, no new orders, just titration of medication. Patient currently asymptomatic, baseline SBP in the 90s-low 100s.
== END 2024-01-01 03:40 | disposition short-term general hospital (02) ==
PROVIDERS: Emergency Provider Family Medicine; PCP Internal Medicine
DX: I48.20 Chronic atrial fibrillation, unspecified (principal); Z79.899 Other long term (current) drug therapy
CPT/HCPCS: 36415; 80053; 83735; 83880; 84443; 84484; 85025; 93005; 96365; 96366; 99285; A9270

== ENCOUNTER 2024-01-01 05:53 | Inpatient (IN) | payer MEDICARE, OTHER, SELFPAY ==
[2024-01-01] VITALS (17 sets, daily range): BP systolic 85–107; BP diastolic 54–62; PULSE 54–95; RESP 15–20; TEMP 36.4–36.9; O2SAT 98–100; BMI 22.9
--- NOTE | 2024-01-01 04:53 | ADMGEN ---
This patient, Sheyla Schilling, was admitted to IMU Room 210-01 at 0413. Patient/family oriented to hospital policies and general routines including ID bracelet, bed and alarms, visiting hours, pain management, procedures, bathroom and other care routines, personal items, smoking policy, room service/diet, and visiting hours. Information on how to activate the Rapid Response Team has been discussed. Patient/Family are encouraged to report perceived risks to care and to ask questions if they do not understand what they are told or what they should do.
--- NOTE | 2024-01-01 04:54 | PC.NURSE ---
Dr Yousif made aware that home med list is in and clarified that cardizem drip can be ordered at current rate 10mg per hour.
[2024-01-01] MEDS: dilTIAZem 100 MG/100 ML 100 MG/100 ML BAG 10 MG IV CONT (05:12)
--- NOTE | 2024-01-01 05:50 | PM.IMHP ---
H&P: HPI History of Present Illness Date/Time: 01/01/24 05:50 Chief Complaint: Patient transferred from [facility] ER for Cardiology evaluation of her new onset AFib with RVR Narrative: Our patient is a very pleasant 62 years old white female who came to the ER for evaluation of her palpitations that started yesterday afternoon when she was resting on her couch. She thought she was having cardiac arrhythmia as her mom was diagnosed with AFib in her 90s. She came to the ER for evaluation, was diagnosed with new onset atrial fibrillation and started on IV Cardizem drip. Our Cardiology was consulted who accepted the patient to evaluate the patient in our facility hence the patient was transferred to IMU. I saw and evaluated the patient at the bedside. Her palpitations have improved on IV Cardizem. She is being admitted for close telemonitoring, Cardiology evaluation, further workup and medical management. Review of Systems Review of Systems: 14 systems were reviewed with pertinent positives and negatives per HPI. Except as documented in the HPI/progress notes, all other systems were reviewed and are negative. All systems reviewed & are unremarkable except as noted in HPI and below PMFSH Family History Family History Mother Afib IBS (irritable bowel syndrome) Hairy cell leukemia H/O angioplasty FHx: cholecystectomy H/O: hysterectomy Father Heart attack Social History Social History Smoking status: Never smoker Second hand tobacco smoke exposure: No Alcohol intake: never Substance use: never Substance use type: does not use Do You Feel Safe in your Home?: Yes Lack of Transportation: No Lack of Food: Never True Current Housing: I Have Housing Concerned About Future Housing: No Difficulty Paying Gas/Electric Bills: No Difficulty Paying for Meds: No Currently Unemployed: No Education: Master's Degree or Higher Difficulty w/ Childcare or Family Care: No Living arrangements: with family Spiritual care concerns: No Meds Home Medications and Allergies Home Medications Medication Instructions Recorded Confirmed Type calcium polycarbophil 625 mg 1,250 mg PO DAILY 01/28/23 01/01/24 History tablet (FiberCon) cholecalciferol (vitamin D3) 50 100 mcg PO DAILY 01/28/23 01/01/24 History mcg (2,000 unit) tablet (Vitamin D3) magnesium 250 mg tablet 500 mg PO HS 01/28/23 01/01/24 History montelukast 10 mg tablet 10 mg PO HS 01/28/23 01/01/24 History (Singulair) ascorbic acid (vitamin C) 500 mg 500 mg PO DAILY 12/20/23 01/01/24 History tablet (Vitamin C) aspirin 81 mg tablet,delayed 81 mg PO DAILY 12/20/23 01/01/24 History release (Adult Low Dose Aspirin) cyanocobalamin (vitamin B-12) 100 100 mcg PO DAILY 12/20/23 01/01/24 History mcg tablet (Vitamin B-12) pantoprazole 20 mg tablet,delayed 20 mg PO DAILY 12/20/23 01/01/24 History release (Protonix) Allergies Allergy/AdvReac Type Severity Reaction Status Date / Time cephalexin [From Keflex] AdvReac Mild Nausea and Verified 01/01/24 00:06 Vomiting codeine AdvReac Nausea and Verified 01/01/24 00:06 Vomiting metronidazole [From Flagyl] AdvReac Nausea and Verified 01/01/24 00:06 Vomiting Vital Signs Vital Signs - 24 hr 01/01/24 04:05 01/01/24 05:12 01/01/24 05:00 Temperature 36.4 C L Pulse Rate 54 L 95 Respiratory Rate 15 Blood Pressure 107/62 Pulse Oximetry 98 Oxygen Delivery Room Air Exam Narrative: PHYSICAL EXAMINATION: Vital signs: Please see the chart General physical exam: 63 years old pleasant and cooperative white female, lying in bed, appears to be weak and tired Head/eyes: Atraumatic, EOMI, PERRLA ENT: Moist mucous membranes, nasal passages clear Neck: Supple, full range of motion, trachea midline CVS: S1 + S2, + irregularly irregular rate an
[2024-01-01 06:57] LABS: Troponin I < 0.012 ng/mL (0.000-0.034)
[2024-01-01 06:59] LABS: Estimated CRCL calculation 66 ml/min; Estimated Glomerular Filt Rate > 60
[2024-01-01] MEDS: SODIUM CHLORIDE 0.9% IV 1,000 ML 75 ML IV CONT (07:19)
[2024-01-01] MEDS: POTASSIUM CHLORIDE 20 MEQ ER TABLET 40 MEQ PO (07:19)
[2024-01-01] MEDS: ACETAMINOPHEN 325 MG TABLET 650 MG PO (08:19)
[2024-01-01] MEDS: ASPIRIN 81 MG ENTERIC TABLET PO (08:21)
[2024-01-01] MEDS: CHOLECALCIFEROL 1,000 UNITS TABLET 2000 UNITS PO (08:21)
[2024-01-01] MEDS: ENOXAPARIN 40 MG/0.4 ML SYRINGE SUB-Q (08:22)
[2024-01-01] MEDS: calcium polycarbophiL 625 MG TABLET 1250 MG PO (08:22)
[2024-01-01] MEDS: PANTOPRAZOLE SOD SESQUIHYDRATE 20 MG TAB PO (08:22)
[2024-01-01] MEDS: ASCORBIC ACID 500 MG TABLET PO (08:22)
--- NOTE | 2024-01-01 09:29 | ECG_ITS ---
[facility] [address] Test Date: 2024-01-01 Pat Name: Sheyla Schilling Department: Room: 210 Gender: F Block Mason: JANIS : 1960 Requested By: Shaji Watts Order Number: [id number] Ximena MD: Shaji Loyola M.D. Measurements Intervals [place] Rate: 71 P: 67 DC: 183 QRS: 6 QRSD: 100 T: 54 QT: 402 QTc: 437 Interpretive Statements SINUS RHYTHM NORMAL ELECTROCARDIOGRAM Compared to ECG 12/31/2023 23:49:17 SINUS RHYTHM REPLACES ATRIAL FIB Electronically Signed On 01-02-2024 08:01:19 CDT by Shaji Loyola M.D.
--- NOTE | 2024-01-01 10:12 | PM.CNCAR ---
Assessment and Plan Assessment and plan (1) Atrial fibrillation with rapid ventricular response: Code(s): I48.91 - Unspecified atrial fibrillation Status: Acute Plan This is a 63-year-old lady who is known to have normal coronary arteries, no structural heart disease by echo who presented with the new diagnosis of atrial fib she noted the abrupt onset of tachy palpitations last evening. She has already converted to sinus rhythm after having tachycardia improved with IV diltiazem. Discussed the entire situation with the patient in terms of rhythm control and need for anticoagulation since she has a chads Vasc score of 2. Will start the patient on flecainide as she is known not to have coronary disease, good LV function and should there be be at low risk for proarrhythmia from this drug. Given her tendency to have low blood pressure relative bradycardia I would guess she would poorly tolerate a beta-akshat. She will be started on apixaban for systemic anticoagulation. I am going to stop her aspirin and Lovenox at this time. Patient could be discharged in the next 24-36 hours if her rhythm remains stable. Will see her tomorrow and barring any arrhythmias can probably be discharged at that time Shaji Loyola MD [facility] History of Present Illness History of Present Illness Consult date/time: 01/01/24 10:12 Reason For Visit: New onset Afib Narrative: This is a 63-year-old woman who is unknown to me prior to this encounter today who I am seeing at the request of the hospitalist because of atrial fibrillation. She has no previous history of atrial fibrillation and came into the emergency room in [place] last evening with the abrupt onset of tachycardia and palpitations she noticed while she was relaxing in her home last evening. The symptoms were not of any great distress to her in the sense that she was not having any she dyspnea, chest pain or any other difficulties in response to this but she recognized this as distinctly uncommon and out of the ordinary. In the past she has been known to have some occasional PVCs but this felt distinctly different to her so she came into the emergency department where she was found to be in AFib with RVR. Of course she was started on intravenous diltiazem and transferred to this hospital for further evaluation. Overnight she has converted to sinus rhythm at the time of this interview she feels well she still has IV diltiazem running and offers no other complaints. Interestingly she was recently referred to see my partner, Dr. Verduzco because of chest pain which sounded very atypical for ischemia. A stress test was done that was abnormal leading to a left heart catheterization that was done late in November of this year by Dr. Ramos which demonstrated no evidence of coronary artery disease. She has no history of hypertension in fact she says that most of the time her blood pressure tends to run on the low side. No dyslipidemia or diabetes. After her negative catheterization she was taken off of aspirin. For some reason it still appears on her medication list and has been ordered by the hospitalists at this time. There is no other pertinent cardiac history. Review of Systems Constitutional: Constitutional: Reports no additional constitutional complaints Eyes: Eyes: Reports no additional eye complaints ENT: Reports system reviewed and no additional complaints, except as documented Cardiovascular: Cardiovascular: Reports as per HPI and Reports palpitations Respiratory: Respiratory: Reports no additional respiratory complaints Gastrointestinal: Gastrointestinal: Reports no additional gastrointestinal complaints Musculoskeletal: Musculoskeletal: Reports no additional musculoskeletal complaints Integumentary/Breasts: Skin/Breast: Reports system reviewed and no additional complaints, except as docu Neurologic: Reports system reviewed and no additional complaints, except as documented Endocrin
[2024-01-01] MEDS: FLECAINIDE ACETATE 100 MG TABLET PO ×2 (10:36→22:00)
[2024-01-01 15:30] LABS: Troponin I < 0.012 ng/mL (0.000-0.034)
--- NOTE | 2024-01-01 17:24 | WPDPN ---
Progress Note: A&P Assessment and Plan (1) New onset atrial fibrillation: Code(s): I48.91 - Unspecified atrial fibrillation Status: Acute (2) Atrial fibrillation with rapid ventricular response: Code(s): I48.91 - Unspecified atrial fibrillation Status: Acute (3) Hypokalemia: Code(s): E87.6 - Hypokalemia Status: Acute (4) GERD (gastroesophageal reflux disease): Code(s): K21.9 - Gastro-esophageal reflux disease without esophagitis Status: Acute Plan 01/01/2024 interval history: patient was started on IV Cardizem and converted to NSR, patient is seen by the map maker, suggested to start flecainide as patient with history of soft bp and bradycardia may not tolerate BB, and started patient on Eliquis as her chads Vasc score of 2, will monitor patient overnight and may discharge patient home tomorrow. Subjective Date/time seen: 01/01/24 17:24 Interval history: Chief Complaint: Patient transferred from [facility] ER for Cardiology evaluation of her new onset AFib with RVR Narrative: Our patient is a very pleasant 62 years old white female who came to the ER for evaluation of her palpitations that started yesterday afternoon when she was resting on her couch. She thought she was having cardiac arrhythmia as her mom was diagnosed with AFib in her 90s. She came to the ER for evaluation, was diagnosed with new onset atrial fibrillation and started on IV Cardizem drip. Our Cardiology was consulted who accepted the patient to evaluate the patient in our facility hence the patient was transferred to IMU. I saw and evaluated the patient at the bedside. Her palpitations have improved on IV Cardizem. She is being admitted for close telemonitoring, Cardiology evaluation, further workup and medical management. 01/01/2024 interval history: patient was started on IV Cardizem and converted to NSR, patient is seen by the map maker, suggested to start flecainide as patient with history of soft bp and bradycardia may not tolerate BB, and started patient on Eliquis as her chads Vasc score of 2, will monitor patient overnight and may discharge patient home tomorrow. Review of Systems Constitutional: Constitutional: Reports no additional constitutional complaints Eyes: Eyes: Reports no additional eye complaints ENT: Reports system reviewed and no additional complaints, except as documented Cardiovascular: Cardiovascular: Reports as per HPI and Reports palpitations Respiratory: Respiratory: Reports no additional respiratory complaints Gastrointestinal: Gastrointestinal: Reports no additional gastrointestinal complaints Musculoskeletal: Musculoskeletal: Reports no additional musculoskeletal complaints Integumentary/Breasts: Skin/Breast: Reports system reviewed and no additional complaints, except as docu Neurologic: Reports system reviewed and no additional complaints, except as documented Endocrine: Endocrine: Reports no additional endocrine complaints Hematologic/Lymphatic: Hematologic/Lymphatic: Reports no additional hematologic/lymphatic complaints Allergic/Immunologic: Allergic/Immunologic: Reports no additional allergic/immunologic complaints Objective Data Vital Signs Vital Signs: Vital Signs - 24 hr 01/01/24 04:05 01/01/24 05:12 01/01/24 05:00 Temperature 36.4 C L Pulse Rate 54 L 95 Respiratory Rate 15 Blood Pressure 107/62 Pulse Oximetry 98 Oxygen Delivery Room Air 01/01/24 06:00 01/01/24 06:00 01/01/24 07:26 Temperature 36.8 C Pulse Rate 71 71 80 Respiratory Rate 17 Blood Pressure 87/56 L Pulse Oximetry 100 Oxygen Delivery 01/01/24 08:00 01/01/24 08:00 01/01/24 10:00 Temperature 36.8 C Pulse Rate 80 65 Respiratory Rate 18 Blood Pressure 87/56 L 91/56 L Pulse Oximetry 100 100 Oxygen Delivery Room Air 01/01/24 10:00 01/01/24 10:29 01/01/24 10:36 Temperature Pulse Rate 65 67 69 Respiratory Rate B
[2024-01-01] MEDS: APIXABAN 5 MG TABLET PO (22:02)
[2024-01-01] MEDS: MAGNESIUM OXIDE 400 MG TABLET PO (22:02)
[2024-01-01] MEDS: MONTELUKAST SODIUM 10 MG TABLET PO (22:02)
[2024-01-02] VITALS (8 sets, daily range): BP systolic 98–104; BP diastolic 67–77; PULSE 66–81; RESP 18–20; TEMP 36.1–36.7; O2SAT 99–100
[2024-01-02 04:43] LABS: Basophils Absolute Auto 0.1 K/mm3 (0.0-0.1); Basophils Percent Auto 1.3 % (0.2-1.2); Eosinophils Absolute Auto 0.3 K/mm3 (0-0.3); Eosinophils Percent Auto 4.4 % (0-4.4); Hematocrit 39.3 % (37.0-47.0); Hemoglobin 12.9 g/dL (12.0-15.0); Immature Granulocyte Absolute 0.01 K/mm3 (0.00-0.031); Immature Granulocyte Percent A 0.2 % (0-0.5); Lymphocytes Absolute Auto 2.55 K/mm3 (0.9-3.2); Lymphocytes Percent Auto 40.1 % (18.3-44.2); Mean Corpuscular HGB Conc 32.8 g/dl (32-36); Mean Corpuscular Hemoglobin 30.5 pg (26-34); Mean Corpuscular Volume 92.9 fl (80-100); Mean Platelet Volume 10.2 fl (7.4-10.4); Monocytes Absolute Auto 0.5 K/mm3 (0.1-0.6); Monocytes Percent Auto 7.7 % (2.6-8.5); Neutrophils Percent Auto 46.3 % (45.5-73.1); Platelet Count Result 228 k/mm3 (150-375); Red Blood Count 4.23 M/mm3 (4.2-5.4); Red Cell Distribution Width 13.1 % (11.5-14.5); White Blood Count 6.4 K/mm3 (4.5-10.0)
[2024-01-02 04:58] LABS: Anion Gap 5 mmol/L (4-12); Blood Urea Nitrogen 13 mg/dL (7-17); Calcium 8.9 mg/dL (8.4-10.2); Carbon Dioxide 26 mmol/L (22-30); Chloride 109 mmol/L (98-107); Estimated CRCL calculation 57 ml/min; Estimated Glomerular Filt Rate > 60; Glucose 101 mg/dL (65-110); Potassium 4.3 mmol/L (3.4-5.0); Sodium 140 mmol/L (137-145)
--- NOTE | 2024-01-02 09:10 | PM.PNCARD ---
Progress Note: A&P Assessment and Plan (1) New onset atrial fibrillation: Code(s): I48.91 - Unspecified atrial fibrillation Status: Acute Plan 63-year-old lady with newly diagnosed paroxysmal atrial fibrillation. She is stable and has been started on antiarrhythmic and anticoagulation therapy with flecainide and apixaban. This regimen should be continued at discharge and I will arrange appropriate follow-up in the office with my partner, Dr. Verduzco who follows this lady as an outpatient. Shaji Loyola MD [facility] Subjective Date/time seen: Date of service: 01/02/24 09:10 Interval history: Follow-up visit in this 63-year-old lady with newly diagnosed atrial fibrillation with RVR. She feels well this morning been started on flecainide yesterday as well as systemic anticoagulation with apixaban. Patient had a variety of questions about these medications which were answered and discussed to her satisfaction. Exam Const: General: comfortable and no acute distress HENMT: Mouth: Yes moist mucous membranes Eyes: Sclera: sclerae normal Neck: Neck: supple and no JVD Other: Normal carotid pulses Resp: Effort & Inspection: normal respiratory effort Auscultation: clear to auscultation bilaterally Cardio: Rate: regular rate Rhythm: regular rhythm Other: Occasional extrasystoles, no murmur GI: GI Palp: Yes Soft to palpation Auscultation: normal bowel sounds Skin: General skin exam: normal color Neuro: Other: Alert and oriented x3 Extrem: Other: Unremarkable Objective Data Vital Signs Vital Signs: Vital Signs - 24 hr 01/01/24 10:00 01/01/24 10:00 01/01/24 10:29 Temperature 36.8 C Pulse Rate 65 65 67 Respiratory Rate 18 Blood Pressure 91/56 L 91/56 L Pulse Oximetry 100 Oxygen Delivery 01/01/24 10:36 01/01/24 10:00 01/01/24 11:14 Temperature 36.9 C Pulse Rate 69 70 66 Respiratory Rate 20 Blood Pressure 85/54 L Pulse Oximetry 99 Oxygen Delivery 01/01/24 12:00 01/01/24 12:00 01/01/24 14:00 Temperature Pulse Rate 77 75 Respiratory Rate Blood Pressure Pulse Oximetry 100 Oxygen Delivery Room Air 01/01/24 15:31 01/01/24 16:00 01/01/24 16:00 Temperature 36.4 C L Pulse Rate 78 70 Respiratory Rate 19 Blood Pressure 92/54 L Pulse Oximetry 98 100 Oxygen Delivery Room Air 01/01/24 18:00 01/01/24 20:00 01/01/24 23:38 Temperature 36.7 C 36.4 C Pulse Rate 68 76 68 Respiratory Rate 16 20 Blood Pressure 93/59 L 97/60 L Pulse Oximetry 99 99 Oxygen Delivery 01/01/24 20:00 01/02/24 00:00 01/01/24 20:00 Temperature Pulse Rate 74 Respiratory Rate Blood Pressure Pulse Oximetry Oxygen Delivery Room Air Room Air 01/01/24 22:00 01/02/24 00:00 01/02/24 02:00 Temperature Pulse Rate 69 69 66 Respiratory Rate Blood Pressure Pulse Oximetry Oxygen Delivery 01/02/24 04:00 01/02/24 04:00 01/02/24 04:00 Temperature 36.1 C L Pulse Rate 72 70 Respiratory Rate 18 Blood Pressure 104/70 Pulse Oximetry 99 Oxygen Delivery Room Air 01/02/24 07:28 Temperature 36.7 C Pulse Rate 77 Respiratory Rate 19 Blood Pressure 100/77 Pulse Oximetry 100 Oxygen Delivery Intake/Output Intake/Output: Intake & Output 12/30/23 12/31/23 01/01/24 01/02/24 23:59 23:59 23:59 23:59 Intake Total 1492.8 440 Output Total 500 Balance 992.8 440 Meds/Results Medications: Active Medications Generic Name Dose Route Start Last Admin Trade Name Freq PRN Reason Stop Dose Admin Acetaminophen 650 mg 01/01/24 06:01 01/01/24 08:19 Acetaminophen 325 Mg Tablet PO 650 mg Q4H PRN Administration Mild Pain (1-3) or Fever Al Hydrox/Mg Hydrox/Simethicone 30 ml 01/01/24 06:01 Mag Hydrox/Al Hydrox/Simeth 30 Ml Udc PO QID PRN Dyspepsia Apixaban 5 mg 01/01/24 21:00 01/01/24 22:02 Apixaban 5 Mg Tablet PO 5 mg Q12HR ERICK
[2024-01-02] MEDS: calcium polycarbophiL 625 MG TABLET 1250 MG PO (09:58)
[2024-01-02] MEDS: FLECAINIDE ACETATE 100 MG TABLET PO (09:58)
[2024-01-02] MEDS: APIXABAN 5 MG TABLET PO (09:59)
[2024-01-02] MEDS: CHOLECALCIFEROL 1,000 UNITS TABLET 2000 UNITS PO (09:59)
[2024-01-02] MEDS: ASCORBIC ACID 500 MG TABLET PO (10:00)
[2024-01-02] MEDS: PANTOPRAZOLE SOD SESQUIHYDRATE 20 MG TAB PO (10:04)
--- NOTE | 2024-01-02 11:43 | PM.DS ---
DS: Admitting Diagnosis Discharge Date 01/02/2024 Admitting Diagnosis Palpitations DS: Discharge Diagnosis Discharge Diagnosis (1) New onset atrial fibrillation: Code(s): I48.91 - Unspecified atrial fibrillation Status: Acute (2) Atrial fibrillation with rapid ventricular response: Code(s): I48.91 - Unspecified atrial fibrillation Status: Inactive (3) Hypokalemia: Code(s): E87.6 - Hypokalemia Status: Acute (4) GERD (gastroesophageal reflux disease): Code(s): K21.9 - Gastro-esophageal reflux disease without esophagitis Status: Acute DS: Summary Hospital Course Hospital Course: This is a 62-year-old female presented to the for evaluation palpitation that started day to. While she was resting a couch. Was ongoing for 2 and hours and hence presented to the ED for evaluation. No associated chest pain shortness of breath or lightheadedness. In the ED vitals were stable except tachycardia 25. EKG was which showed atrial fibrillation with rapid ventricular rate. She was started on IV Cardizem added to IMU for further treatment. Cardiology was consulted. Labs were remarkable for hypokalemia which was replaced. Cardiac enzymes were negative. She had recent cardiac catheterization done on 12/21/2023 she which revealed mild luminal irregularities with no significant obstructive angiographic disease. Her chads Vasc score was 2 and was started on Eliquis. Given borderline blood pressure, cardiology suggested she would poorly tolerate beta-akshat and given good LV function she was started on flecainide. She converted back to sinus rhythm while on IV diltiazem which was tapered off. She will remain on flecainide and Eliquis and will follow-up with cardiology as an outpatient basis. Time Spent with Patient Time attestation: Total time spent providing and/or coordinating discharge services: 31 minutes Exam Narrative: General physical exam: 63 years old pleasant and cooperative white female, lying in bed, not in acute distress Head/eyes: Atraumatic, EOMI, PERRLA ENT: Moist mucous membranes, nasal passages clear Neck: Supple, full range of motion, trachea midline CVS: S1 + S2, + regular rate and rhythm, no murmurs telemetry with sinus rhythm Respiratory: Bilaterally fair air entry in both lung cason, symmetric chest expansion, no distress Abdomen: Soft, non-tender, bowel sounds +ve, no organomegaly Extremities: No clubbing, no cyanosis, no edema, no calf tenderness Musculoskeletal: Moves all, adequate range of motion, no muscle spasms Skin: Warm, dry, no jaundice, no cyanosis Neurological: Awake, alert, oriented x 3, cranial nerves II-XII intact, no focal neurological deficits Psychiatric: Normal mood, Non suicidal DS: Data Data Completed and Pending Labs on day of discharge: Labs from last 24 hours 01/02/24 01/01/24 04:14 15:03 WBC 6.4 RBC 4.23 Hgb 12.9 Hct 39.3 MCV 92.9 MCH 30.5 MCHC 32.8 RDW 13.1 Plt Count 228 MPV 10.2 Immature Gran % (Auto) 0.2 Neut % (Auto) 46.3 Lymph % (Auto) 40.1 [place] % (Auto) 7.7 Eos % (Auto) 4.4 Baso % (Auto) 1.3 H Lymph # (Auto) 2.55 [place] # (Auto) 0.5 Eos # (Auto) 0.3 Baso # (Auto) 0.1 Abs Immat Gran (auto) 0.01 Absolute Neuts (auto) 3.0 Absolute Nucleated RBC 0.000 Nucleated RBC % 0.0 Sodium 140 Potassium 4.3 Chloride 109 H Carbon Dioxide 26 Anion Gap 5 BUN 13 Creatinine 0.70 Estim Creat Clear Calc 57 Estimated GFR > 60 Glucose 101 Calcium 8.9 Magnesium 2.0 Troponin I < 0.012 Discharge Plan Discharge Attending physician on discharge: Adelfo Oconnell Consulting providers: Shaji Loyola Discharging Clinician: Adelfo Oconnell Anticipated Discharge Date/Time: 01/02/24 11:44 Patient Disposition: Home, Self-Care Activity: as tolerated Diet: heart healthy Patient Instructions: Antibiotic Form, A-fib (Atrial Fibrill
== END 2024-01-02 14:35 | disposition home or self-care (01) | DRG 310 ==
PROVIDERS: Admitting Provider Family Medicine; PCP Internal Medicine; Visit Provider Internal Medicine
DX: I48.91 Unspecified atrial fibrillation (principal); E87.6 Hypokalemia; K21.9 Gastro-esophageal reflux disease without esophagitis
CPT/HCPCS: 36415; 80048; 82565; 83735; 84100; 84132; 84443; 84484; 85025; 93005; A9270; J1650; J7030

== ENCOUNTER 2024-02-07 11:13 | Outpatient (CLI) | payer MEDICARE, SELFPAY ==
[2024-02-08 12:13] LABS: Vitamin D 25 Hydroxy 72 ng/mL (30-100)
== END 2024-02-07 11:14 | disposition home or self-care (01) ==
LOC: CHSLAB 11:15
PROVIDERS: PCP Internal Medicine; Visit Provider Obstetrics & Gynecology Gynecology
DX: E55.9 Vitamin D deficiency, unspecified (principal)
CPT/HCPCS: 36415; 82306

== ENCOUNTER 2024-03-06 12:13 | Outpatient (CLI) | payer MEDICARE, OTHER, SELFPAY ==
[2024-03-06 12:33] LABS: Calcium 8.7 mg/dL (8.5-10.1); Estimated Glomerular Filt Rate > 60
[2024-03-06 12:34] VITALS: BP 107/70; PULSE 72; RESP 14; TEMP 36.5; O2SAT 98; BMI 21.7
[2024-03-06] MEDS: ZOLEDRONIC ACID 5 MG/100 ML 100 ML 400 MG IVPB (12:50)
--- NOTE | 2024-03-06 13:16 | PC.NURSE ---
Patient tolerated IV Reclast infusion well. SEE MAR/ patient care notes
== END 2024-03-06 12:14 | disposition home or self-care (01) ==
PROVIDERS: PCP Internal Medicine; Visit Provider Nurse Practitioner Family
DX: M81.0 Age-related osteoporosis without current pathological fracture (principal)
CPT/HCPCS: 36415; 82310; 82565; 96374; J3489

== ENCOUNTER 2024-03-12 07:48 | Outpatient (CLI) | payer MEDICARE, OTHER, SELFPAY ==
--- NOTE | ~2024-03-12 | MM_ITS ---
EXAMINATION: MM screening zahra BI w robert HISTORY: Screening TECHNIQUE: Craniocaudal and mediolateral oblique 3-D tomosynthesis images were obtained and synthetic 2-D images were generated. CAD analysis was submitted and interpreted. COMPARISON: Comparison to multiple prior studies sequentially, with oldest reviewed study dated 08/04. BREAST PARENCHYMAL COMPOSITION: Not dense: There are scattered areas of fibroglandular density. FINDINGS: There is no evidence of suspicious mass, calcification, or architectural distortion to sugg est malignancy in either breast. There has been no suspicious interval change. IMPRESSION: 1. No mammographic evidence of malignancy. 2. Recommend routine screening mammography in one year. BI-RADS Category 1: Negative Reviewed, dictated and finalized at location B.
== END 2024-03-12 07:49 | disposition home or self-care (01) ==
LOC: CHSIMG 07:52
PROVIDERS: PCP Internal Medicine; Visit Provider Obstetrics & Gynecology Gynecology
DX: Z12.31 Encounter for screening mammogram for malignant neoplasm of breast (principal)
CPT/HCPCS: 77063; 77067

== ENCOUNTER 2024-03-21 12:39 | Outpatient (CLI) | payer MEDICARE, SELFPAY ==
[2024-03-21 13:45] LABS: Magnesium 1.9 mg/dL (1.8-2.4); Potassium 4.3 mmol/L (3.5-5.1)
== END 2024-03-21 12:40 | disposition home or self-care (01) ==
LOC: CHSLAB 12:42
PROVIDERS: PCP Internal Medicine; Visit Provider Nurse Practitioner Adult Health
DX: I48.91 Unspecified atrial fibrillation (principal)
CPT/HCPCS: 36415; 83735; 84132

== ENCOUNTER 2024-04-19 12:41 | Outpatient (CLI) | payer MEDICARE, SELFPAY ==
[2024-04-19 13:27] LABS: Magnesium 2.3 mg/dL (1.8-2.4)
== END 2024-04-19 12:42 | disposition home or self-care (01) ==
PROVIDERS: PCP Internal Medicine; Visit Provider Nurse Practitioner Adult Health
DX: I48.91 Unspecified atrial fibrillation (principal)
CPT/HCPCS: 36415; 83735; 84132

== ENCOUNTER 2025-01-23 08:14 | Outpatient (RCR) | payer MEDICARE, OTHER, SELFPAY ==
--- NOTE | 2025-01-23 07:52 | OPREHPOC ---
Outpatient Therapy Plan of Care This is a Multidisciplinary Plan of Care that may contain components documented by all disciplines (PT, OT, and ST.) PT Problem 1 PT Problem #1 Knowledge Deficit PT Goal 1 Goal / Goal Update 1. patient to understand and agree with plan moving forward Target Visit 1
--- NOTE | 2025-01-23 07:52 | PTOPEVAL1 ---
Assessment and note entered by JT File, PT Evaluation Information Assessment Status Evaluation Diagnosis vestibular migraines ICD-10 Condition Codes (PT) Dizziness and Giddiness R42,BPPV right ear H81.11, BPPV H81.12 Subjective Information patient reports she has had several bouts of dizziness episodes recently. she reports the first few times she was not able to get up due to being very dizzy. she reports she has been on meclizine , and reports it has greatly lessened her symptoms . she reports she is off balance too when standing . she reports the room is spinning. she reports her neck hurts and her ears are full. she reports she has not had any illness or sinus issues recently. she reports the room spinning is every morning. Reported Pain Level Pain Score 4: Self Report Assessment PT Clinical Summary mrs. sanchez is a 64 yo woman who presents to skilled PT services for evaluation and treatment of vertigo and dizziness. she presents today with ringing in the ears, fullness in the ears, reports of dizziness and room spinning. however, her antonio hallpike is negative for symptom reproduction or nystagmus. she does display a positive diastolic orthostatic hypotension from supine to sitting, and positive neck symptoms. she was educated to consult the evaluation of an ENT for the inner ear and possible menieres symptoms then to return to PT for further neck evaluation/treatment Plan of Care Treatment Frequency and hold continued therapy at this time. Duration These treatments will address the objective and functional deficits as defined above. The patient will be advanced safely and appropriately in order for the patient to progress towards his/her prior level of function. Additional exercises will be introduced and as well as a comprehensive home exercise program upon discharge, if needed, ?to ensure carryover of functional gains achieved in the clinic. This treatment plan has been reviewed and agreement upon by the patient.
--- NOTE | 2025-04-08 16:30 | PCPTNOTE ---
pt attends her initial evaluation for vestibular migraines. pt has not returned since her initial evaluation and is being discharged from therapy.
== END 2025-01-23 20:00 | disposition home or self-care (01) ==
LOC: CHSPT 08:14
PROVIDERS: Visit Provider Internal Medicine
DX: G43.819 Other migraine, intractable, without status migrainosus (principal); H81.13 Benign paroxysmal vertigo, bilateral
CPT/HCPCS: 97161

== ENCOUNTER 2025-02-22 16:09 | Outpatient (CLI) | payer MEDICARE, OTHER, SELFPAY ==
--- OUTSIDE RECORDS SUMMARY | 2025-02-22 16:12 | XMS_ITS | Clinical Summary ---
Author Organization [facility] Address Formerly [facility], [id number] [place] [address] Care Team Providers Care Store Administrative Assistant Name Role Phone Rommel Modi MD Primary Care Provider [phone] Allergies Active Allergy Reactions Criticality Noted Date Comments Cephalexin Palpitations Low 08/15/2016 Codeine Nausea Only 08/15/2016 Metronidazole Shortness of Breath High 08/15/2016 Medications multivitamin tablet Take 1 tablet by mouth daily. 6 Active montelukast (SINGULAIR) 10 MG tablet Take 1 tablet by mouth daily. 6 Active ALPRAZolam 0.25 MG tablet Take 0.25 mg by mouth nightly as needed for Sleep. Take 0.5 tablet at bedtime Active Estradiol (ESTRACE VA) Place vaginally every other day. Active escitalopram 5 MG tablet 7 Active venlafaxine 100 MG tablet Take 100 mg by mouth daily. Active Pyridoxine HCl (VITAMIN B-6) 25 MG Tab Active vitamin B-12 100 MCG tablet Take 50 mcg by mouth daily. Active Biotin w/ Vitamins C & E (HAIR/SKIN/NAIL S OR) Active magnesium oxide 250 MG tablet Take 3 tablets by mouth daily. Active Active Problems Problem Noted Date Diagnosed Date Tear of medial meniscus of r ight knee, current, unspecified tear type, initial encounter 06/16/2021 Precordial pain 06/26/2020 Family history of cardiovascular disease 020 Peroneal tendinitis 04/19/2018 Migraine headache 09/09/2016 Mitral regurgitation GERD (gastroesophageal reflux disease) Asthma (HHS/HCC) Resolved Problems Problem Noted Date Diagnosed Date Resolved Date Encounter for preventive health examination 04/01/2016 04/04/2020 Family History Medical History Relation Comments Heart Attack Father Breast Cancer Maternal Aunt Cancer Maternal Grandfather Diabetes Maternal Grandfather Heart Disease Maternal Grandfather Heart Attack Maternal Grandmother Stent Cardiac Mother Heart Disease Other 1 Breast Cancer Other 2 3 cousins on mom s side, breast cancer Heart Attack Paternal Grandfather Heart Attack Paternal Grandmother Relation Status Comments Father (Age 74) Maternal Aunt breast cancer at age 39 Maternal Grandfather Maternal Grandmother Mother Alive due to renal william lure from chemo, angioplasty at age 77 Other 1 Alive Other 2 Paternal Grandfather Paternal Grandmother Social History Tobacco Use Types Packs/Day Years Used Date Smoking Tobacco: Never Smokeless Tobacco: Never Alcohol Use Standard Drinks/Week Comments No 0 (1 standard drink = 0.6 oz pur e alcohol) rarely glass of wine Comments No Sex and Gender Information Value Date Recorded Sex Assigned at Female 10/05/2023 11:32 AM CDT Legal Sex Female 9:59 PM CDT Gender Identity Female 10/05/2023 11:32 AM CDT Sexual Orientation Straight 10/05/2023 11 :32 AM CDT 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 file Not on file Not o n file Last Filed Vital Signs Vital Sign Reading Time Taken Comments Blood Pressure 122/74 05/14/2021 9:57 AM CDT Pulse 68 05/14/2021 9:57 AM CDT Temperature 36.6 C (97.9 F) 07/20/2019 1:46 PM W[facility]ARE CENTER CONSULTANT Respiratory Rate 20 05/28/2020 12:33 PM WOUND CARE CENTER CONSULTANT Oxygen Saturation 100% 05/28/2020 12:33 PM WOUND CARE CENTER CONSULTANT Inhaled Oxygen Concentration - - Weight 64.9 kg (143 lb) 06/16/2021 11:20 AM WOUND CARE CENTER CONSULTANT Height 165.1 cm (5' 5) 06/16/2021 11:20 AM WOUND CARE CENTER CONSULTANT Body Mass Index 23.8 06/16/2021 11:20 AM WOUND CARE CENTER CONSULTANT Plan of Treatment Health Maintenance Due Date Last Done Comments Colorectal Cancer Screening Colonoscopy (10 Years) 1958 Hepatitis C 1976 DTaP, Tdap and Td Vaccines (1 - Tdap) 1977 Pneumococcal Vaccine: 50+ Years (1 of 2 - PCV) 1977 Zoster Vaccines (1 of 2) 2008 RSV Immunization or 60+ Years (1 - Risk 60-74 years 1-dose series) 2018 Annual Medicare Wellness Visit 09/28/2023 COVID-19 Vaccine (1 - 2023- season) 2024 Mammogram Screening 12/22/2024 12/22/2022, 11/23/2021, 08/04/2020, Additional history exists Dexa Scan (General) Completed 03/20/2019 Meningococcal B Vaccine Aged Out No l onger eligible based on patient's age to complete this topic Meningococcal Vaccine Aged Out No yas porsha eligible based on patient's age to complete this topic RSV Immunizations Under 20 Months Aged Out No longer eligible based on patient's age to complete this topic Procedures Procedure Name Priority Date/Time Associated Diagnosis Comments MG SCREENING W BLAS NAVID DIGI Routine 12/22/2022 10:49 AM CDT Visit for screening mammogram BONE DENSITY/DEXA Routine 03/20/2019 11: 45 AM CDT Osteopenia from Last 3 Months or Most Recently Relevant to Health Maintenance Results * MG SCREENING W BLAS NAVID DIGI (12/22/2022 10:49 AM CDT) Anatomical Region Laterality Modality Breast Bilateral Mammography 12/22/2022 3:40 PM CDT Narrative 12/22/2022 3:41 PM CDT EXAMINATION: BILATERAL SCREENING MAMMOGRAPHY Exam Date: 12/22/2022 10:24 AM CLINICAL INDICATION: 62 years of age female routine screening. COMPARISON: Screening mammogram(s) from 08/04/2020 and 11/23/2021 TECHNIQUE: Digital CC & MLO views. Tomosynthesis imaging acquisition. Study read with the assistance of a computer-aided detection system. TISSUE DENSITY: The breast tissue is heterogeneously dense, which may obscure small masses. FINDINGS: Couple of isolated benign punctate microcalcifications. No suspicious grouping of microcalcifications, architectural distortion, or new dominant suspicious nodule 3 dimensionally demonstrated in either breast. IMPRESSION: No interval features to suggest malignancy. In the absence of clinical symptoms, return for annual screening mammogram due in 1 year. RECOMMENDATION: Routine Screening, Bilateral in 1 year ASSESSMENT: ACR BI-RADS 2 - BENIGN FINDING(S) Ordered By: LEONA WONG Interpreted By: Roger Bower MD, 12/22/2022 3:40 PM us Leona Wong MD MAMMO Final Res ult * BONE DENSITY/DEXA (03/20/2019 11:45 AM CDT) Anatomical Region Laterality Modality Bone Bone Density 03/20/2019 1:58 PM CDT Impressions 03/20/2019 2:16 PM CDT Impression: BMD measured at both total hips and both femoral necks at WHO category level of osteopenia. BMD measured at AP lumbar spine at level of normal. Interpreted By: Pj Curtis MD, 03/20/2019 1:58 PM Narrative 03/20/2019 2:16 PM CDT Examination: DEXA Bone densitometry EXAM DATE: 03/20/2019 11:27 AM Clinical history: Postmenopausal. Family history of osteoporosis. Dairy product consumption. Exercise. History of steroid and thyroid medication use. Technique: DEXA bone minimal density evaluation was performed in the AP projection over the lumbar spine and over both hips in the AP projection utilizing standard imaging techniques. Assessment: The BMD measured at the AP spine L1-L4 is 1.154 g/cm? with a T-score of -0.2 and a Z-Score of 1.0. Bone density is up to 10% below young normal. This patient is considered normal according to the World Health Organization (WHO) criteria. Fracture risk is low. The BMD measured at the AP lumbar spine is increased 0.007 g/sq cm since study 02/01/2017. The BMD measured at the femur total left is 0.789 g/cm? with a T-score of -1.7 and a Z-Score of -0.8. The patient is considered osteopenic according to World Health Organization (WHO) criteria. Bone density is between 10 and 25% below young normal. Fracture risk is moderate. Treatment is advised. The BMD measured at the left femoral neck is 0.774 g/sq cm resulting in a T score of -1.9 and a Z score -0.6, values at the WHO category level of osteopenia. The BMD measured at the femur total right is 0.807 g/cm? with a T-score of -1.6 and aZ-Score of -0.6. The patient is considered osteopenic according to World Health Organization (WHO) criteria. Bone density is between 10 and 25% below young normal. Fracture risk is moderate. Treatment is advised. The BMD measured at the right femoral neck is 0.794 g/sq cm resulting in a T score of -1.8 and a Z score -0.5, values at the WHO category level of osteopenia. The bone mineral density measured over the total of both hips has decreased 0.034 g/sq cm since study 02/01/2017. FRAX results: 10 year probability of major ostia chronic fracture 9.3% and of hip fracture 1.1%. Recommendations: All patients should ensure an adequate intake of dietary calcium and vitamin D. The NOF recommend adults under the age of 50 need 1000 mg of calcium and 400-800 IU of vitamin D daily. Effective therapy for the prevention and treatment of osteoporosis include biphosphonates. Follow-up: People with diagnosed cases of osteoporosis or at high risk for fracture should have regular bone mineral density test. For patients eligible for Medicare, routine testing is allowed once every 2 years. Testing frequency can be increased to one year for patients who have rapidly progressing disease, those who are receiving or discontinuing medical therapy to restore bone mass, or have additional risk factors. Based on these results, a followup exam is recommended in no earlier than 2 years for routine follow-up. As early as 1 year for assessment of efficacy of new medication therapy for treatment of osteoporosis. Procedure Note Pj Curtis MD - 03/20/2019 Examination: DEXA Bone densitometry EXAM DATE: 03/20/2019 11:27 AM Clinical history: Postmenopausal. Family history of osteoporosis. Dairy product consumption. Exercise. History of steroid and thyroid medication use. Technique: DEXA bone minimal density evaluation was performed in the AP projection over the lumbar spine and over both hips in the AP projection utilizing standard imaging techniques. Assessment: The BMD measured at the AP spine L1-L4 is 1.154 g/cm? with a T-score of -0.2 and a Z-Score of 1.0. Bone density is up to 10% below youngnormal. This patient is considered normal according to the World Health Organization (WHO) criteria. Fracture risk is low. The BMD measured at the AP lumbar spine is increased 0.007 g/sq cm since study 02/01/2017. The BMD measured at the femur total left is 0.789 g/cm? with a T-scoreof -1.7 and a Z-Score of -0.8. The patient is considered osteopenic according to World Health Organization (WHO) criteria. Bone density is between 10 and 25% below young normal. Fracture risk is moderate.Treatment is advised. The BMD measured at the left femoral neck is 0.774 g/sq cm resulting in aT score of -1.9 and a Z score -0.6, values at the WHO category level of osteopenia. The BMD measured at the femur total right is 0.807 g/cm? with a T-scoreof -1.6 and aZ-Score of -0.6. The patient is considered osteopenic according to World Health Organization (WHO) criteria. Bone density is between 10 and 25% below young normal. Fracture risk is moderate.Treatment is advised. The BMD measured at the right femoral neck is 0.794 g/sq cm resulting jaun T score of -1.8 and a Z score -0.5, values at the WHO category level of osteopenia. The bone mineral density measured over the total of both hips hasdecreased 0.034 g/sq cm since study 02/01/2017. FRAX results: 10 year probability of major ostia chronic fracture 9.3%and of hip fracture 1.1%. Recommendations: All patients should ensure an adequate intake of dietary calcium and vitamin D. The NOF recommend adults under the age of 50 need 1000 mg of calcium and 400-800 IU of vitamin D daily. Effective therapy for the prevention and treatment of osteoporosis include biphosphonates. Follow-up: People with diagnosed cases of osteoporosis or at high risk for fracture should have regular bone mineral density test. For patients eligible for Medicare, routine testing is allowed once every 2 years. Testingfrequency can be increased to one year for patients who have rapidly progressing disease, those who are receiving or discontinuing medical therapy to restore bone mass, or have additional risk factors. Based on these results, a followup exam is recommended in no earlier than2 years for routine follow-up. As early as 1 year for assessment ofefficacy of new medication therapy for treatment of osteoporosis. Impression: BMD measured at both total hips and both femoral necks at WHO category level of osteopenia. BMD measured at AP lumbar spine at level of normal. Interpreted By: Pj Curtis MD, 03/20/2019 1:58 PM Rebecca Herrera NP DEXA Final Result from Last 3 Months or Most Recently Relevant to Health Maintenance Insurance [facility] Member Subscriber Plan / Payer (Ef fective 2020-Present) Name:Sheyla Schilling Relation to Subscriber:Self Name:Sheyla Schilling Payer ID:[id number] (NAIC) Type:Not on file Address: [address] MEDICARE Care Teams Store Administrative Assistant Relationship Specialty Start Date End Date Rommel Modi MD [address] [place] [address] PCP - General INTERNAL MEDICINE 08/16/16
--- OUTSIDE RECORDS SUMMARY | 2025-02-22 16:12 | XMS_ITS | Encounter Summary ---
Author Organization [facility] Address [address] [place] [address] Phone Care Team Providers Care Cafe Worker Name Role Phone Rommel Modi MD Primary Care Provider [phone] Encounter Details Date Type Department Care Team (Late st Contact Info) Description 08/02/2024 Telephone [facility] Cardiology [address] [facility] Advanced Medicine 8th [place] [address] [place] [address] Jordan Aranda MD [address] [facility] [address] [place], [place] [id number] Social History Tobacco Use Types Packs/Day Years Used Date Smoking Tobacco: Never Passive Smoke Exposure: Never Smokeless Tobacco: Never AUDIT-C Answer Date Recorded Q1: How often do you have a drink containing alcohol? Never 10/31/2023 Q2: How many drinks containi ng alcohol do you have on a typical day when you are drinking? Patient does not drink Q3: How often do you have si x or more drinks on one occasion? Never 10/31/2023 Comments Unknown Sex and Gender Information Value Date Recorded Sex Assigned at Not on file Legal Sex Female 2:44 PM CDT Gender Identity Not on file Sexual Orientation Not on file documented as of this encounter Plan of Treatment Not on file documented as of this encounter Visit Diagnoses Not on filedocumented in this encounter Care Teams Cafe Worker Relationship Specialty Start Date End Date Rommel Modi MD PCP - General Internal Medicine 10/03/23 documented as of this encounter
--- OUTSIDE RECORDS SUMMARY | 2025-02-22 16:12 | XMS_ITS | Encounter Summary ---
Author Organization [facility] Address [facility] [place] [address] Care Team Providers Care Training Assistant Name Role Phone Rommel Modi MD Primary Care Provider [phone] Encounter Details Date Type Department Care Team (Late st Contact Info) Description 10/08/2017 Abstract [facility] [address] [place] [address] , Generic MD Félix Social History Tobacco Use Types Packs/Day Years Used Date Smoking Tobacco: Never Smokeless Tobacco: Never Alcohol Use Standard Drinks/Week Comments No 0 (1 standard drink = 0.6 oz pur e alcohol) rarely glass of wine Comments Unknown Sex and Gender Information Value Date Recorded Sex Assigned at Female 10/05/2023 11:32 AM CDT Legal Sex Female 9:59 PM CDT Gender Identity Female 10/05/2023 11:32 AM CDT Sexual Orientation Straight 10/05/2023 11 :32 AM CDT 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
--- OUTSIDE RECORDS SUMMARY | 2025-02-22 16:12 | XMS_ITS | Encounter Summary ---
Author Organization [facility] Address [address] [place] [address] Care Team Providers Care Windshield Technician Name Role Phone Rommel Modi MD Primary Care Provider [phone] Encounter Details Date Type Department Care Team ([facility] st Contact Info) Description 08/09/2024 Orders Only [facility] Health Information Management [address] [place] [id number] Scanning, Provider Social History Tobacco Use Types Packs/Day Years [...] on file documented as of this encounter Procedures Procedure Name Priority Date/Time Associated Diagnosis Comments SCAN - LABS 08/09/2024 documented in this encounter Results * SCAN - LABS (08/09/2024) us Provider Scanning Final Result documented in this encounter Visit Diagnoses Not on filedocumented in this encounter Care Teams Windshield Technician Relationship Specialty Start Date End Date Rommel Modi MD [phone] (work) PCP - General Internal Medicine 10/03/23 documented as of this encounter
--- OUTSIDE RECORDS SUMMARY | 2025-02-22 16:12 | XMS_ITS | Encounter Summary ---
Author Organization [facility] Address [facility] [place] [address] Care Team Providers Care Aix Architect Name Role Phone Rommel Modi MD Primary Care Provider [phone] Encounter Details Date Type Department Care Team (Late st Contact Info) Description 09/01/2015 Abstract [facility] AT [address] [place] [address] Roger Vega MD [address] [place] [phone] Social History Tobacco Use Types Packs/Day Years Used Date Smoking Tobacco: Never Alcohol Use Standard Drinks/Week Comments No 0 (1 standard drink = 0.6 oz pur e alcohol) Comments Unknown Sex and Gender Information Value Date Recorded Sex Assigned at Female 10/05/2023 11:32 AM CDT Legal Sex Female 9:59 PM CDT Gender Identity Female 10/05/2023 11:32 AM CDT Sexual Orientation Straight 10/05/2023 11 :32 AM CDT 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
--- OUTSIDE RECORDS SUMMARY | 2025-02-22 16:12 | XMS_ITS | Referral Summary ---
Author Organization [place] [address] Address [address] [facility] [address] [place] [address] Care Team Providers Care Software Specialist Name Role Phone Rommel Modi MD Primary Care Provider [phone] Encounters Date Type Department Care Team Description 02/11/2025 Telephone [facility] Ophthalmology [address] [place] [address] Laura Milligan MD Scheduling Appointments 01/02/2025 Telephone [facility] Cardiology [address] [facility] Advanced Medicine 8th [place] [address] [place] [address] Jordan Aranda MD 01/02/2025 Telephone [facility] Cardiology [address] [facility] Medicine 8th [place] [address] [place] [address] Shirin Villalpando 01/02/2025 Telephone [facility] Cardiology [address] [place] [address] [address] [place] [phone] Hernán Verduzco MD 12/26/2024 1:30 PM CDT Office Visit [facility] Cardiology [address] [place] [address] [address] [place] [address] Hernán Verduzco MD Nonrheumatic mitral valve regurgitation (Primary Dx); New onset atrial fibrillation (HCC); Encounter for monitoring flecainide therapy; Paroxysmal atrial fibrillation (HCC); Chronic anticoagulation; Low blood pressure, not hypotension; Lipid screening from Last 3 Months Allergies Active Allergy Reactions Criticality Noted Date Comments Cephalexin Shortness of breath,Palpitations High Codeine Nausea only Low 08/15/2016 Metronidazole Shortness of breath High 08/15/[address] (PROTONIX) 20 mg EC tablet Take 1 tablet (20 mg total) by mouth daily 10/27/2023 Active montelukast (SINGULAIR) 10 mg tablet Take 1 tablet (10 mg total) by mouth daily 08/28/2015 Active cyanocobalamin (Vitamin B-12) 100 mcg tablet Take 0.5 tablets (50 mcg total) by mouth daily Active magnesium oxide (MAG-OX) 250 mg (150.8 mg elemental) tablet Take 3 tablets (750 mg total) by mouth daily Active polycarbophil (FIBERCON) 625 mg tablet Take 1 tablet (625 mg total) by mouth daily Active ascorbic acid (ascorbic acid with bill hips) 500 mg tablet,chewable Take 1 tablet/chew tab (500 mg total) by mouth daily Active cholecalciferol (VITAMIN D-3) 2000 unit capsule Take 2 capsules (4,000 Units total) by mouth daily Active clonazePAM (KlonoPIN) 0.5 mg tablet 01/16/2024 Active sertraline (ZOLOFT) 25 mg tablet Take 1 tablet (25 mg total) by mouth daily 05/21/2024 Active hydrocortisone 2.5 % cream 08/07/2024 Active Eliquis 5 mg tablet TAKE ONE TABLET BY MOUTH EVERY TWELVE HOURS 180 tablet 2 11/26/2024 Active flecainide (TAMBOCOR) 100 mg tablet TAKE ONE TABLET BY MOUTH TWICE A DAY 90 tablet 3 12/03/2024 Active Active Problems Problem Noted Date Diagnosed Date Low blood pressure, not hypotension 12/26/2024 Chronic anticoagulation 12/26/2024 Paroxysmal atrial fibrillation 12/26/2024 Encounter for monitoring flecainide therapy 10/2024 Nonrheumatic mitral valve regurgitation 10/31/19 24 Palpitations 10/31/2023 Abnormal stress test 10/31/2023 Abnormal EKG 10/31/2023 Atypical chest pain 10/31/2023 Social History Tobacco Use Types Packs/Day Years Used Date Smoking Tobacco: Never Passive Smoke Exposure: Never Smokeless Tobacco: Never Tobacco Cessation:Counseling Given: Not Answered AUDIT-C Answer Date Recorded Q1: How often [...] on file Sexual Orientation Not on file Last Filed Vital Signs Vital Sign Reading Time Taken Comments Blood Pressure 100/70 12/26/2024 1:23 PM CDT Pulse 75 12/26/2024 1:23 PM CDT Temperature - - Respiratory Rate - - Oxygen Saturation 98% 12/26/2024 1:23 PM CDT Inhaled Oxygen Concentration - - Weight 51.3 kg (113 lb) 12/26/2024 1:23 PM CDT Height 162.6 cm (5' 4) 12/26/2024 1:23 PM CDT Body Mass Index 19.4 12/26/2024 1:23 PM CDT Plan of Treatment Not on file Procedures Procedure Name Priority Date/Time Associated Diagnosis Comments POCT LIPID PANEL Routine 12/26/2024 1:25 PM CDT Lipid screening from Last 3 Months Results * POCT lipid panel (12/26/2024 1:25 PM CDT) Cholesterol, POC 143 <200 MG/DL HDL, POC 71 >=40 mg/dL Triglycerides, POC 61 <=149 mg/dL LDL Cholesterol POC 60 <=129 mg/dL Chol/HDL Ratio, POC 0.9 NONE Non-HDL Cholesterol, POC 72 NONE mg/dL Cholesterol Total, POC 143 30 - 199 mg/dL Capillary blood 12/26/2024 1 :25 PM CDT us Hernán Verduzco MD POINT OF CARE TEST ORDERA BLES Final Result from Last 3 Months Insurance MEDICARE [employer] MEDICARE [employer] Care Teams Software Specialist Relationship Specialty Start Date End Date Rommel Modi MD PCP - General Internal Medicine 10/03/23
--- OUTSIDE RECORDS SUMMARY | 2025-02-22 16:12 | XMS_ITS | Clinical Summary ---
Author Organization [facility] [address] Address [address] [place] [address] Care Team Providers Care Heater Mechanic Name Role Phone Rommel Modi MD Primary Care Provider [phone] Allergies Active Allergy Reactions Criticality Noted Date [...] therapy 10/2024 Nonrheumatic mitral valve regurgitation 10/31/19 Palpitations 10/31/2023 Abnormal stress test 10/31/2023 Abnormal EKG 10/31/2023 Atypical chest pain 10/31/2023 Encounters Date Type Department Care Team Description 02/11/2025 Telephone [facility] Ophthalmology [address] [place] [address] Laura Milligan MD Scheduling Appointments 01/02/2025 Telephone [facility] Cardiology [facility] Advanced Medicine 8th [place] [address] [place] [address] Jordan Aranda MD 01/02/2025 Telephone [facility] Cardiology [facility] Medicine 8th [place] [address] [place] [address] Shirin Villalpando 01/02/2025 Telephone [facility] Medical Group Cardiology 10 [facility] [address] [place] [address] Hernán Verduzco MD 12/26/2024 1:30 PM CDT Office Visit [facility] Medical Group Cardiology 10 [facility] [address] [place] [address] Hernán Verduzco MD Nonrheumatic mitral valve regurgitation (Primary Dx); New onset atrial fibrillation (HCC); Encounter for monitoring flecainide therapy; Paroxysmal atrial fibrillation (HCC); Chronic anticoagulation; Low blood pressure, not hypotension; Lipid screening from Last 3 Months Surgical History Surgery Date Site/Laterality Comments TONSILLECTOMY Medical History Medical History Date Comments Anxiety Cataracts, bilateral Osteopenia Asthma GERD (gastroesophageal reflux disease) Mitral regurgitation Family History Medical History Relation Name Comments Heart attack Father Arrhythmia Mother Atrial fibrillation Mother Heart attack Mother Irritable bowel syndrome Mother Relation Name Status Comments Father Mother Alive Social History Tobacco Use Types Packs/Day Years [...] on file Sexual Orientation Not on file Obstetrics History Last Filed Vital Signs Vital Sign Reading [...] 12/26/2024 1:23 PM CDT Plan of Treatment Health Maintenance Due Date Last Done Comments Colon Cancer Screening-Colonoscopy 1960 Depression Screening 1960 Fall Risk Assessment 1960 Hepatitis C Screening 1960 Hepatitis B Screening 1976 Pneumococcal vaccine 65+ (1 of 2 - PCV) 1977 Osteoporosis Screening-Bone Density Scan 03/20/2021 03/20/2019 Well Visit 65+ 09/28/2023 Breast Cancer Screening-Mammogram 12/23/2023 12/22/2022, 12/22/2022, 11/23/2021, Additional history exists Covid-19 Vaccine (2023-2 5 season) 2024 04/16/2023, 04/23/2022, 12/11/2021, Additional history exists Influenza Vaccine (#1) 2025 , 04/21/2022, 04/22/2021, Additional history exists DTaP/Tdap/Td Vaccine (2 - Td or Tdap) 06/23/2028 06/23/2018 Zoster Vaccine Completed 02/19/2022, 12/11/2021 Procedures Procedure Name Priority Date/Time Associated Diagnosis [...] Capillary blood 12/26/2024 1 :25 PM CDT Hernán Verduzco MD POINT OF CARE TEST ORDERA BLES Final Result from Last 3 Months Insurance MEDICARE [facility] MEDICARE [facility] Care Teams Heater Mechanic Relationship Specialty Start Date End Date Rommel Modi MD PCP - General Internal Medicine 10/03/23
[2025-02-22 16:47] LABS: Alanine Aminotransferase 24 U/L (6-35); Albumin Level 4.2 g/dL (3.5-5.1); Alkaline Phosphatase 60 U/L (38-126); Anion Gap 3 mmol/L (4-12); Aspartate Amino Transferase 30 U/L (14-36); Bilirubin,Total 0.3 mg/dL (0.2-1.3); Blood Urea Nitrogen 15 mg/dL (7-17); Calcium 8.8 mg/dL (8.4-10.2); Carbon Dioxide 30 mmol/L (22-30); Chloride 107 mmol/L (98-107); Estimated Glomerular Filt Rate 54; Glucose 98 mg/dL (65-110); Osmolality Calculated 290 mOsm/kg (285-295); Potassium 3.8 mmol/L (3.4-5.0); Sodium 140 mmol/L (137-145); Total Protein 6.3 g/dL (6.3-8.2)
== END 2025-02-22 16:10 | disposition home or self-care (01) ==
PROVIDERS: PCP Internal Medicine; Visit Provider Obstetrics & Gynecology Gynecology
DX: E55.9 Vitamin D deficiency, unspecified (principal)
CPT/HCPCS: 36415; 80053; 82306

== ENCOUNTER 2025-04-24 12:28 | Outpatient (CLI) | payer MEDICARE, OTHER, SELFPAY ==
--- NOTE | ~2025-04-24 | MM_ITS ---
EXAMINATION: MM screening zahra BI w robert HISTORY: Screening TECHNIQUE: Craniocaudal and mediolateral oblique 3-D tomosynthesis images were obtained and synthetic 2-D images were generated. CAD analysis was submitted and interpreted. COMPARISON: Comparison to multiple prior studies sequentially, with oldest reviewed study dated 08/04/2020. BREAST PARENCHYMAL COMPOSITION: Dense: The breasts are heterogeneously dense, which may obscure small masses FINDINGS: There is no evidence of suspicious mass, calcification, or architectural distortion to suggest malignancy in either breast. There has been no suspicious interval change. IMPRESSION: 1. No mammographic evidence of malignancy. 2. Recommend routine screening mammography in one year. BI-RADS Category 1: Negative Reviewed, dictated and finalized at location B.
--- OUTSIDE RECORDS SUMMARY | 2025-04-24 12:33 | XMS_ITS | Clinical Summary ---
Author Organization 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 Not on file Not o n file Last Filed Vital Signs Vital Sign Reading Time Taken Comments Blood Pressure 122/74 05/14/2021 9:57 AM CDT Pulse 68 05/14/2021 9:57 AM CDT Temperature 36.6 C (97.9 F) 07/20/2019 1:46 PM FOLDING MACHINE TENDER Respiratory Rate 20 05/28/2020 12:33 PM FOLDING MACHINE TENDER Oxygen Saturation 100% 05/28/2020 12:33 PM FOLDING MACHINE TENDER Inhaled Oxygen Concentration - - Weight 64.9 kg (143 lb) 06/16/2021 11:20 AM FOLDING MACHINE TENDER Height 165.1 cm (5' 5) 06/16/2021 11:20 AM FOLDING MACHINE TENDER Body Mass Index 23.8 06/16/2021 11:20 AM FOLDING MACHINE TENDER Plan of Treatment Health Maintenance Due Date Last Done Comments Colorectal Cancer Screening Colonoscopy (10 Years) 1958 Hepatitis C 1976 DTaP, Tdap and Td Vaccines (1 - Tdap) 1977 Pneumococcal Vaccine: 50+ Years (1 of 2 - PCV) 1977 Zoster Vaccines (1 of 2) 2008 RSV Immunization or 60+ Years (1 - Risk 60-74 years 1-dose series) 2018 Annual Medicare Wellness Visit 09/28/2023 Mammogram Screening 12/22/2024 12/22/2022, 11/23/2021, 08/04/2020, Additional history exists COVID-19 Vaccine ( season) 2025 Dexa Scan (General) Completed 03/20/2019 Meningococcal B [...] Most Recently Relevant to Health Maintenance Insurance [facility] Member Subscriber Plan / Payer (Ef fective 2020-Present) Name:Sheyla Schilling Relation to Subscriber:Self Name:Sheyla Schilling Payer ID:[id number] (NAIC) Type:Not on file Address: [address] MEDICARE Care Teams Machine Milker Relationship Specialty Start Date End Date Rommel Modi MD [address] [place] [address] PCP - General INTERNAL MEDICINE 08/16/16
--- OUTSIDE RECORDS SUMMARY | 2025-04-24 12:33 | XMS_ITS | Clinical Summary ---
Author Organization [facility] [address] Address [address] [place] [address] Care Team Providers Care Latin Dance Instructor Name Role Phone Rommel Modi MD Primary Care Provider [phone] Allergies Active Allergy Reactions Criticality Noted Date [...] Encounters Date Type Department Care Team Description 03/21/2025 Telephone [facility] Card[facility] [address] [facility] 8th [place] [address] [place] [address] Jordan Aranda MD 02/11/2025 Telephone [facility] Medicine Ophthalmology [address] [place] [address] Laura Milligan MD Scheduling Appointments from Last 3 Months Surgical History Surgery [...] 12/22/2022, 11/23/2021, Additional history exists Covid-19 Vaccine (2024-2 6 season) 2025 04/16/2023, 04/23/2022, 12/11/2021, Additional history exists Influenza Vaccine (#1) 2025 , 04/21/2022, 04/22/2021, Additional history exists DTaP/Tdap/Td Vaccine (2 - Td or Tdap) 06/23/2028 06/23/2018 Zoster Vaccine Completed 02/19/2022, 12/11/2021 Insurance MEDICARE [employer] [place] MEDICARE [facility] [employer] [place] Care Teams Latin Dance Instructor Relationship Specialty Start Date End Date Rommel Modi MD PCP - General Internal Medicine 10/03/23
--- OUTSIDE RECORDS SUMMARY | 2025-04-24 12:33 | XMS_ITS | Encounter Summary ---
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
--- OUTSIDE RECORDS SUMMARY | 2025-04-24 12:33 | XMS_ITS | Encounter Summary ---
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
--- OUTSIDE RECORDS SUMMARY | 2025-04-24 12:33 | XMS_ITS | Encounter Summary ---
Author Organization [facility] Address [address] [place] [address] Phone Care Team Providers Care Best Second Jobs Name Role Phone Rommel Modi MD Primary Care Provider [phone] Encounter Details Date Type Department Care Team (Late st Contact Info) Description 08/02/2024 Telephone [facility] Medicine Cardiology [address] [facility] Advanced Medicine 8th [place] [address] [place] [address] Jordan Aranda MD [address] [facility] [address] [place], [place] [id number] Social History Tobacco Use Types Packs/Day Years [...] on filedocumented in this encounter Care Teams Best Second Jobs Relationship Specialty Start Date End Date Rommel Modi MD PCP - General Internal Medicine 10/03/23 documented as of this encounter
--- OUTSIDE RECORDS SUMMARY | 2025-04-24 12:33 | XMS_ITS | Encounter Summary ---
Author Organization [facility] Address [address] [place] [address] Care Team Providers Care Heavy Duty Press Operator Name Role Phone Rommel Modi MD Primary Care Provider [phone] Encounter Details Date Type Department Care Team ([facility] st Contact Info) Description 08/09/2024 Orders Only [facility] Health Information Management [address] [place] [phone] Scanning, Provider Social History Tobacco Use [...] on filedocumented in this encounter Care Teams Heavy Duty Press Operator Relationship Specialty Start Date End Date Rommel Modi MD [phone] (work) PCP - General Internal Medicine 10/03/23 documented as of this encounter
[2025-04-24 12:50] VITALS: BMI 21.7
[2025-04-24] MEDS: ZOLEDRONIC ACID 5 MG/100 ML 100 ML 400 MG IVPB (13:05)
[2025-04-24 13:11] VITALS: BP 118/67; PULSE 78; RESP 14; TEMP 36.6; O2SAT 99
[2025-04-24 13:45] VITALS: BP 111/69; PULSE 72
--- NOTE | 2025-04-24 14:27 | PC.NURSE ---
Patient tolerated Reclast infusion well. See MAR/patient care notes.
== END 2025-04-24 12:29 | disposition home or self-care (01) ==
PROVIDERS: PCP Internal Medicine; Visit Provider Obstetrics & Gynecology Gynecology
DX: M81.0 Age-related osteoporosis without current pathological fracture (principal); Z12.31 Encounter for screening mammogram for malignant neoplasm of breast
CPT/HCPCS: 77063; 77067; 96374; J3489